=== PATIENT | female | born 1935 | race Caucasian/White ===

== ENCOUNTER → 2016-10-08 | Outpatient (CLI) | payer MEDICARE, BC | END | disposition home or self-care (01) | LOC: LABPAT 11:51 | PROVIDERS: ATTEND Orthopaedic Surgery | DX: Z01.812 Encounter for preprocedural laboratory examination (principal) | CPT/HCPCS: 87070 ==

== ENCOUNTER 2016-10-12 12:01 | Inpatient (IN) | payer MEDICARE, BC ==
[2016-10-05 15:09] VITALS: BMI 38.3
[~2016-10-12 12:01] MED LIST: ACETAMINOPHEN TAB 500 MG TAB PO ONE; FAMOTIDINE 20 MG/2 ML VIAL IV PRN; HYDROmorphone 1 MG/ML 1 ML SYRINGE IVP PRN; LACTATED RINGERS 1,000 ML IV SCH; LIDOCAINE 1% 20 ML VIAL (10MG/ML) FOR IV START INTRADERMA PRN; MELOXICAM 7.5 MG TAB PO ONE; MIDAZOLAM 2 MG/2 ML VIAL IV PRN; ONDANSETRON 4 MG/2 ML VIAL IVP PRN; ROPIVACAINE 246.25 MG, EPINEPHrine 0.5 MG, KETOROLAC 30 MG, cloNIDine HCL/PF 80 MCG, WA... MISCELLANE ONE; TRANEXAMIC ACID 1,000 MG in SODIUM CHLORIDE 0.9% 100 ML IVPB ONE; ceFAZolin 2 GM in SODIUM CHLORIDE 0.9% 100 ML IVPB ONE
[2016-10-12] MEDS ORDERED: LIDOCAINE 1% 20 ML VIAL (10MG/ML) FOR IV START INTRADERMA ONE (14:40)
[2016-10-12] MEDS ORDERED: DEXAMETHASONE SOD PHOSPHATE 10 MG/ML 1 ML VIAL IV ONE (14:46)
[2016-10-12] MEDS ORDERED: NEOSTIGMINE 1 MG/ML 10 ML VIAL ONE (15:15)
[2016-10-12] MEDS ORDERED: PROPOFOL 10 MG/ML 20 ML VIAL IV ONE (15:15)
[2016-10-12] MEDS ORDERED: GLYCOPYRROLATE 0.2 MG/ML 2 ML VIAL ONE (15:15)
[2016-10-12] MEDS ORDERED: ROCURONIUM BROMIDE 10 MG/ML 10 ML VIAL IV ONE (15:15)
[2016-10-12] MEDS ORDERED: SUCCINYLCHOLINE CHLORIDE 100 MG/5 ML SYR IV ONE (15:15)
[2016-10-12] MEDS ORDERED: TRANEXAMIC ACID 1,000 MG/10 ML VIAL ONE (15:15)
[2016-10-12] MEDS ORDERED: SODIUM CHLORIDE 0.9% 100 ML BAG ONE (15:15)
[2016-10-12] MEDS ORDERED: hydrALAZINE HCL 20 MG/ML 1 ML VIAL ONE (15:15)
[2016-10-12] MEDS ORDERED: fentaNYL (PF) 50 MCG/ML 2 ML AMP ONE (15:15)
[2016-10-12] MEDS ORDERED: LIDOCAINE 1% INJ 10MG/ML (20 ML MDV) ONE (15:15)
--- NOTE | 2016-10-12 16:25 | P.OP ---
Date of Procedure: 10/12/16 Preoperative Diagnosis: Severe osteoarthritis left shoulder Postoperative Diagnosis: Severe osteoarthritis left shoulder Procedure(s) Performed: Resurfacing hemiarthroplasty left shoulder Implants: Stuart & Nephew resurfacing shoulder 42 mm head. Stuart & Nephew resurfacing shoulder small stem Anesthesia: ISAMARA Surgeon: Patrick Reyes Web Site Administrator #1: Marianne Durand Estimated Blood Loss (ml): 75 Pathology: other (Bone and cartilage) Condition: stable Disposition: PACU Indications for Procedure: This is a patient that presented to my office with severe pain in the shoulder. X-rays demonstrated severe osteoarthritis of the glenohumeral joint of her shoulder. After failure of conservative treatment, we discussed the surgical and nonsurgical treatment options at length. The patient has had a prior resurfacing hemiarthroplasty of her other shoulder, has done very well. The patient wishes to proceed with a surfacing shoulder hemiarthroplasty. Patient is aware of the complications of the procedure which include but are not limited to infection, hardware failure, persistent pain, dislocation, and nerve injury. Informed consent was obtained. Operative Findings: The operative findings are consistent with severe osteoarthritis of her left shoulder Description of Procedure: The patient was seen in the preoperative area, consent was reviewed, and operative site was marked with a skin marker. Patient was then brought to the operating room and given preoperative antibiotics intravenously. Patient was also given 1 g of Tranexamic acid intravenously. A general anesthetic was administered by the anesthesia department. A Mitchell catheter was placed by the nursing staff. The patient was then placed in a beach chair position with the bony prominences well-padded and the head secured. The shoulder was then prepped and draped in the usual sterile fashion. A universal timeout was then performed, which confirmed the patient's name, surgical site, ALLERGIES, and consent. A standard deltopectoral approach was performed. The skin and subcutaneous tissue was sharply dissected down to the deltoid fascia. The cephalic vein was then identified and retracted medially. The deltopectoral interval was then utilized to expose the subscapularis tendon. A retractor was then placed under the coracobrachialis tendon retracted medially, and the deltoid. The axillary nerve is palpated and protected throughout the procedure. The subscapularis tendon was then released and retracted medially. The humeral head was then exposed easily. The rotator cuff tendon was found to be completely torn and retracted. After the humeral head was exposed, osteophytes were removed with a Ronguer. Next, using the guide, the guidewire was inserted in the center of the humeral head. After the humeral head was sized, the appropriate reamer was then used to ream the humeral head. Next the central hole was then drilled with the appropriate drill. The shoulder was then copiously irrigated with pulsatile lavage. Next a trial humeral component was placed in the shoulder was reduced. Shoulder was taken through a full range of motion and found to be stable. The shoulder was then gently dislocated, and the trial humerus component was removed. The final humeral component was impacted. Shoulder was then relocated. Again the shoulder was taken through a range of motion and found to have no instability. Shoulder was then irrigated with pulsatile lavage. The shoulder was then irrigated with Irrisept solution. The soft tissues were then injected with ropivacaine solution. A second dose of 1 g of Tranexamic acid was given. The subscapularis was then repaired with #1 Vicryl. The deltopectoral interval was then closed with #1 Vicryl as well. The subcutaneous tissues were closed with 2-0 Vicryl then Dermabond was placed on the skin. A sterile dressing was then applied, the patient was transported to the recovery room in an arm sling in stable condition. The broker assistant Marianne Durand required due the complexity of the surgery and the need for a skilled surgical coder.
[2016-10-12] MEDS ORDERED: ONDANSETRON 4 MG/2 ML VIAL IVP PRN (16:36)
[2016-10-12] MEDS ORDERED: hydrOXYzine PAMOATE 25 MG CAP PO PRN ×2 (16:36)
[2016-10-12] MEDS ORDERED: SENNOSIDES-DOCUSATE SODIUM 1 EACH TAB PO PRN (16:36)
[2016-10-12] MEDS ORDERED: HYDROmorphone 1 MG/ML 1 ML SYRINGE IVP PRN ×3 (16:36)
[2016-10-12] MEDS ORDERED: HYDROcodone/APAP 5-325MG 1 EACH TAB PO PRN (16:36)
[2016-10-12 16:43] VITALS: RESP 16
--- NOTE | 2016-10-12 17:03 | XR ---
EXAMINATION TYPE: XR shoulder limited LT DATE OF EXAM: 10/12/2016 4:55 PM COMPARISON: NONE HISTORY: Pain TECHNIQUE: Shoulder examined in 3 FINDINGS: There is placement of a humeral head component. No acute fractures are evident. IMPRESSION: 1. Postsurgical changes humeral head prosthesis.
[2016-10-12 19:32] LABS: Basophils # (A) 0.1 k/uL (0-0.2); Basophils % (A) 0 %; CHCM 33.1; Eosinophils # (A) 0.1 k/uL (0-0.7); Eosinophils % (A) 0 %; HCT 39.9 % (34.0-46.0); HDW 2.48; HGB 13.3 gm/dL (11.4-16.0); Luc # (Auto) 0.06; Luc % (Auto) 0; Lymphocytes # (A) 0.7 k/uL (1.0-4.8); Lymphocytes % (A) 4 %; MCH 31.3 pg (25.0-35.0); MCHC 33.2 g/dL (31.0-37.0); MCV 94.2 fL (80.0-100.0); Mean Platelet Volume 9.4; Monocytes # (A) 0.4 k/uL (0-1.0); Monocytes % (A) 2 %; Neutrophils # (A) 18.6 k/uL (1.3-7.7); Neutrophils % (A) 94 %; RBC 4.24 m/uL (3.80-5.40); RDW 13.8 % (11.5-15.5); WBC 19.9 k/uL (3.8-10.6); WBC (Perox) 20.27
[2016-10-12] MEDS: HYDROcodone/APAP 5-325MG 1 EACH TAB PO PRN (20:30)
[2016-10-12] MEDS ORDERED: ACETAMINOPHEN TAB 325 MG TAB PO PRN (21:01)
[2016-10-12] MEDS ORDERED: ALPRAZolam 0.5 MG TAB PO PRN (21:01)
[2016-10-12] MEDS ORDERED: MECLIZINE 12.5 MG TAB PO PRN (21:01)
[2016-10-12] MEDS ORDERED: GABAPENTIN 300 MG CAP PO SCH (22:58)
[2016-10-12] MEDS ORDERED: METOPROLOL TARTRATE 25 MG TAB PO SCH (22:59)
[2016-10-12] MEDS: SODIUM CHLORIDE 0.9% 1,000 ML IV SCH (23:22)
[2016-10-12] MEDS: DILTIAZEM CD 120 MG CAP.ER.24H PO SCH (23:23)
[2016-10-12] MEDS: ceFAZolin 2 GM in SODIUM CHLORIDE 0.9% 100 ML IVPB SCH (23:28)
[2016-10-12] MEDS: METOPROLOL TARTRATE 25 MG TAB PO SCH (23:42)
[2016-10-13] MEDS: HYDROcodone/APAP 5-325MG 1 EACH TAB PO PRN ×2 (02:03→17:08)
[2016-10-13] MEDS: ceFAZolin 2 GM in SODIUM CHLORIDE 0.9% 100 ML IVPB SCH (08:24)
[2016-10-13] MEDS: DILTIAZEM CD 120 MG CAP.ER.24H PO SCH (08:25)
[2016-10-13] MEDS: METOPROLOL TARTRATE 25 MG TAB PO SCH (08:26)
--- NOTE | 2016-10-13 08:42 | P.DS ---
Providers Date of admission: 10/12/16 13:36 Attending physician: Patrick Reyes Consults: 10/12/16 16:40 Consult Physician Routine Consulting Provider: Dwayne Morales Consult Reason/Comments: medical managment Do you want consulting provider notified?: Yes Primary care physician: Mary Knott - Discharge Diagnosis(es) (1) Primary osteoarthritis, left shoulder Current Visit: Yes Status: Acute (2) Status post shoulder hemiarthroplasty Current Visit: No Status: Acute Hospital Course: This is a pleasant 81-year-old female with known history of osteoarthritis of the left shoulder. The patient failed conservative treatment. After discussion consideration the patient elected to proceed with resurfacing hemiarthroplasty of the shoulder. She was cleared preoperatively by her primary care physician. Patient was admitted to [facility] on 10/12/2016 and underwent the procedure. The procedure was performed without competitions or sequelae. The patient has done well postoperatively. She is seen and evaluated at bedside with Dr. Patrick Reyes. Her pain is well-controlled. She denies numbness or tingling. Dressing is clean dry and intact. Incision appears fine with no erythema or active drainage. Left upper extremity is neurovascular intact. Radial pulse 2+ out of 4+. The patient is orthopedic medically stable for discharge to home today. Pertinent Studies: Laboratory Tests 10/12/16 19:05 WBC 19.9 H RBC 4.24 Hgb 13.3 Hct 39.9 MCV 94.2 MCH 31.3 MCHC 33.2 RDW 13.8 Plt Count 265 Neutrophils % 94 Lymphocytes % 4 Monocytes % 2 Eosinophils % 0 Basophils % 0 Neutrophils # 18.6 H Lymphocytes # 0.7 L Monocytes # 0.4 Eosinophils # 0.1 Basophils # 0.1 Patient Condition at Discharge: Good Plan - Discharge Summary New Discharge Prescriptions: Hydrocodone/Acetaminophen [[place] 5-325] 1 - 2 each PO Q6HR PRN #90 tab PRN Reason: Pain Sennosides-Docusate Sodium [Senokot-S] 2 tab PO DAILY #60 tablet Discharge Medication List ALPRAZolam [Xanax] 1 mg PO BID PRN 10/09/15 [History] Mirabegron [Myrbetriq] 50 mg PO DAILY 10/09/15 [History] Diltiazem Cd [Cardizem Cd] 120 mg PO BID 10/05/16 [History] Gabapentin [Neurontin] 300 mg PO HS 10/05/16 [History] Hydrocodone/Acetaminophen [[place] 5-325] 0.5 tab PO TID PRN 10/05/16 [History] Meclizine [Antivert] 12.5 mg PO TID PRN 10/05/16 [History] Metoprolol Tartrate [Lopressor] 25 mg PO BID 10/05/16 [History] Acetaminophen [Tylenol Arthritis] 650 mg PO Q8H PRN 10/08/16 [History] Furosemide [Lasix] 20 mg PO DAILY 10/08/16 [History] Hydrochlorothiazide [Hydrodiuril] 25 mg PO DAILY 10/08/16 [History] Lisinopril [Prinivil] 40 mg PO QAM 10/08/16 [History] Multivitamins, Thera [Multivitamin] 1 tab PO DAILY 10/08/16 [History] Potassium Chloride [Klor-Con 10] 10 meq PO DAILY 10/08/16 [History] Ranitidine HCl [Zantac] 150 mg PO BID 10/08/16 [History] Red Yeast Rice 600 mg PO BID 10/08/16 [History] D-Methorphan/PE/Acetaminophen [Tylenol Cold Max Day Caplet] 1 tab PO DAILY PRN 10/12/16 [History] Hydrocodone/Acetaminophen [[place] 5-325] 1 - 2 each PO Q6HR PRN #90 tab 10/13/16 [Rx] Sennosides-Docusate Sodium [Senokot-S] 2 tab PO DAILY #60 tablet 10/13/16 [Rx] Follow up Appointment(s)/Referral(s): Patrick Reyes DO [Doctor of Osteopathic Medicine] - 2 Weeks Activity/Diet/Wound Care/Special Instructions: Sling for comfort left upper extremity. keep Incision clean and dry Okay to shower if no drainage after 2 days. Ice to left shoulder Call [facility] with questions or concerns. [phone] Discharge Disposition: HOME SELF-CARE
[2016-10-13] MEDS ORDERED: FAMOTIDINE 20 MG TAB PO SCH (09:00)
[2016-10-13] MEDS ORDERED: HYDROCHLOROTHIAZIDE 25 MG TAB PO SCH (09:00)
[2016-10-13] MEDS ORDERED: MULTIVITAMINS, THERA 1 EACH TAB PO SCH (09:00)
[2016-10-13] MEDS ORDERED: NON-FORMULARY DRUG (Red Yeast Rice [Red Yeast Rice] 600 MG) PO SCH (09:00)
[2016-10-13] MEDS ORDERED: METOPROLOL TARTRATE 25 MG TAB PO SCH ×2 (09:00→22:31)
[2016-10-13] MEDS ORDERED: DILTIAZEM CD 120 MG CAP.ER.24H PO SCH ×2 (09:00→22:29)
[2016-10-13] MEDS ORDERED: FUROSEMIDE 20 MG TAB PO SCH (09:00)
[2016-10-13] MEDS ORDERED: POTASSIUM CHLORIDE ER 10 MEQ TAB.ER.PRT PO SCH (09:00)
[2016-10-13] MEDS ORDERED: LISINOPRIL 20 MG TAB PO SCH (09:00)
[2016-10-13] MEDS ORDERED: OXYBUTYNIN 10 MG TAB.ER.24 PO SCH (09:00)
[2016-10-13 12:51] LABS: Anion Gap 10 mmol/L; Blood Urea Nitrogen 34 mg/dL (7-17); Calcium 8.9 mg/dL (8.4-10.2); Carbon Dioxide 23 mmol/L (22-30); Chloride 106 mmol/L (98-107); Glucose 121 mg/dL (74-99); Non-African American GFR(MDRD) 59 (>60 ml/min/1.73 sqM); Potassium 4.3 mmol/L (3.5-5.1); Sodium 139 mmol/L (137-145)
[2016-10-13] MEDS: SODIUM CHLORIDE 0.9% 1,000 ML IV SCH (13:45)
[2016-10-13 15:28] VITALS: BP 121/55; PULSE 60; TEMP 98
--- NOTE | 2016-10-13 17:46 | CONS ---
DATE OF CONSULTATION: REASON FOR CONSULTATION: Leukocytosis. Patient is a 81-year-old admitted with severe osteoarthritis of the shoulder. Patient underwent left shoulder hemiarthroplasty and the patient denied any fever or chills. The patient denied any dysuria, nausea, vomiting. The patient denied any abdominal pain. The patient denied any dysuria. Patient clinically doing well post surgery. Does have sluggish bowel sounds. REVIEW OF SYSTEMS: CONSTITUTIONAL: No fever, no malaise, no fatigue. HEENT: No recent visual problems or hearing problems. Denied any sore throat. CARDIOVASCULAR: No chest pain, orthopnea, PND, no palpitations, no syncope. PULMONARY: No shortness of breath, no cough, no hemoptysis. GASTROINTESTINAL: No diarrhea, no nausea, no vomiting, no abdominal pain. Normoactive bowel sounds. NEUROLOGICAL: No headaches, no weakness, no numbness. HEMATOLOGICAL: Denies any bleeding or petechiae. GENITOURINARY: Denies any burning micturition, frequency, or urgency. MUSCULOSKELETAL/RHEUMATOLOGICAL: Left shoulder, some soreness in the shoulder area. ENDOCRINE: Denies any polyuria or polydipsia. The rest of the 14 point review of systems is negative. Past medical history significant for DVT and gastroesophageal reflux disease, hypertension, osteoarthritis. Regarding hypertension, patient is on hydrochlorothiazide and Lasix. I do not believe hydrochlorothiazide is beneficial when she is on Lasix, because of that hydrochlorothiazide will be discontinued upon discharge; osteoarthritis, left breast cancer, back surgery, cholecystectomy, joint replacement surgery and tonsillectomy. SOCIAL HISTORY: Denied any smoking, alcohol abuse or any drug abuse. FAMILY HISTORY: Multiple cancers in the family. Home medications include: 1. Ranitidine. 2. Potassium chloride. 3. Multivitamin. 4. ( ). 5. Metoprolol. 6. Meclizine. 7. Lisinopril. 8. Hydrocodone. 9. Acetaminophen. 10. Gabapentin. 11. Lasix. 12. Diltiazem. 13. Cardizem CD. 14. Alprazolam. 15. Acetaminophen. 16. Senna. 17. Hydrocodone acetaminophen. PHYSICAL EXAMINATION: VITAL SIGNS: Temperature 97.3, pulse of 58, respiratory rate of 16, blood pressure is 109/60, saturating at 94% on room air. GENERAL: Alert and oriented x3. Not in apparent distress. HEENT: Pupils are round and equally reacting to light. EOMI. No scleral icterus. No conjunctival pallor. Normocephalic, atraumatic. No pharyngeal erythema. No thyromegaly. CARDIOVASCULAR: S1 and S2 present. No murmurs, rubs, or gallops. PULMONARY: Chest is clear to auscultation, no wheezing or crackles. ABDOMEN: Soft, nontender, nondistended, normoactive bowel sounds. No palpable organomegaly. MUSCULOSKELETAL: defer to orthopedic surgery. EXTREMITIES: No cyanosis, clubbing, or pedal edema. NEUROLOGICAL: Gross neurological examination did not reveal any focal deficits. SKIN: No rashes. LABORATORY DATA: CBC, BMP no significant abnormality was appreciated except for elevated BUN of 34 and WBC count of 19,900. ASSESSMENT AND PLAN: 1. Leukocytosis without any signs or symptoms of ( ) at this point in time. 2. Left shoulder arthroplasty, further management pain management and deep venous thrombosis prophylaxis per orthopedic surgery. 3. Hypertension, all the medications can be continued except for hydrochlorothiazide that may not be beneficial to as the patient is already on Lasix. 4. Obesity. Counseling was provided. 5. Gastroesophageal reflux disease. 6. DVT in the past. Patient is not on any anticoagulation for previous deep venous thrombosis. No further recommendations at this point of time. ( ) discharge medications reconciliation, the patient can be discharged from medical perspective whenever she is okay from orthopedic perspective.
[2016-10-13] MEDS ORDERED: GABAPENTIN 300 MG CAP PO SCH ×2 (21:00→22:30)
[2016-10-14] MEDS ORDERED: FAMOTIDINE 20 MG TAB PO SCH (09:00)
== END 2016-10-13 17:23 | disposition home or self-care (01) | DRG 483 ==
LOC: 2ORMAIN 13:36 → 3SUR 16:24
PROVIDERS: ADMIT Orthopaedic Surgery; ATTEND Orthopaedic Surgery
PROC: 0RRK0JZ Replacement of Left Shoulder Joint with Synthetic Substitute, Open Approach (ICD-10-PCS; principal; 2016-10-12 15:50)
DX: M19.012 Primary osteoarthritis, left shoulder (principal); I10 Essential (primary) hypertension; E66.9 Obesity, unspecified; D72.829 Elevated white blood cell count, unspecified; K21.9 Gastro-esophageal reflux disease without esophagitis; Z86.718 Personal history of other venous thrombosis and embolism; Z79.899 Other long term (current) drug therapy
CPT/HCPCS: 80048; 85025

== ENCOUNTER → 2016-11-25 | Outpatient (CLI) | payer MEDICARE, BC ==
[2016-11-25 10:39] LABS: Basophils # (A) 0.1 k/uL (0-0.2); Basophils % (A) 1 %; CH 31.5; CHCM 32.7; Eosinophils # (A) 0.2 k/uL (0-0.7); Eosinophils % (A) 3 %; HCT 38.8 % (34.0-46.0); HDW 2.78; HGB 12.8 gm/dL (11.4-16.0); Luc % (Auto) 3; Lymphocytes # (A) 1.3 k/uL (1.0-4.8); Lymphocytes % (A) 20 %; MCH 31.9 pg (25.0-35.0); MCHC 32.9 g/dL (31.0-37.0); Mean Platelet Volume 7.7; Monocytes # (A) 0.6 k/uL (0-1.0); Monocytes % (A) 9 %; Neutrophils # (A) 4.2 k/uL (1.3-7.7); Neutrophils % (A) 64 %; RDW 14.5 % (11.5-15.5); WBC 6.6 k/uL (3.8-10.6); WBC (Perox) 6.68
[2016-11-25 10:47] LABS: INR 1.1 (<1.1); Partial Thromboplastin Time 23.7 sec (22.0-30.0); Prothrombin Time 10.8 sec (9.0-12.0)
[2016-11-25 10:48] LABS: Appearance,Urine Clear (Clear); Bilirubin,Urine Negative (Negative); Glucose,Urine (UA) Negative (Negative); Ketones,Urine Negative (Negative); Leukocyte Esterase,Urine Small (Negative); Mucus,Urine Rare /hpf; Nitrite,Urine Negative (Negative); PH, Urine 5.5 (5.0-8.0); Particle Count 2120; Protein,Urine Negative (Negative); RBC,Urine 1 /hpf (0-5); Specific Gravity,Urine 1.011 (1.001-1.035); Squamous Epithelial Cell,Urine <1 /hpf (0-4); UA Billing (MACRO vs. MICRO) MICRO; Urobilinogen,Urine <2.0 mg/dL (<2.0); WBC,Urine 4 /hpf (0-5)
[2016-11-25 10:57] LABS: ALT 28 U/L (9-52); AST 21 U/L (14-36); Alkaline Phosphatase 81 U/L (38-126); Anion Gap 9 mmol/L; Blood Urea Nitrogen 25 mg/dL (7-17); Calcium 9.5 mg/dL (8.4-10.2); Carbon Dioxide 27 mmol/L (22-30); Chloride 106 mmol/L (98-107); Glucose 77 mg/dL (74-99); Non-African American GFR(MDRD) >60 (>60 ml/min/1.73 sqM); Potassium 4.1 mmol/L (3.5-5.1); Sodium 142 mmol/L (137-145); Total Bilirubin 0.7 mg/dL (0.2-1.3); Total Protein 6.6 g/dL (6.3-8.2)
== END | disposition home or self-care (01) ==
LOC: LABPAT 09:40
PROVIDERS: ATTEND Orthopaedic Surgery
DX: Z01.812 Encounter for preprocedural laboratory examination (principal); Z79.01 Long term (current) use of anticoagulants
CPT/HCPCS: 80053; 81001; 85025; 85610; 85730; 86850; 86900; 86901; 87070

== ENCOUNTER 2016-12-07 09:51 | Inpatient (IN) | payer MEDICARE, BC ==
[2016-12-03 15:25] VITALS: BMI 38.5
[~2016-12-07 09:51] MED LIST changes: +DEXAMETHASONE SOD PHOSPHATE 10 MG/ML 1 ML VIAL IV ONE; -FAMOTIDINE 20 MG/2 ML VIAL IV PRN; -LACTATED RINGERS 1,000 ML IV SCH; +ONDANSETRON 4 MG/2 ML VIAL IVP ONE; -ONDANSETRON 4 MG/2 ML VIAL IVP PRN; -ROPIVACAINE 246.25 MG, EPINEPHrine 0.5 MG, KETOROLAC 30 MG, cloNIDine HCL/PF 80 MCG, WA... MISCELLANE ONE; +SCOPOLAMINE 1.5MG/72HR PATCH TRANSDERM ONE
[2016-12-07] MEDS: LACTATED RINGERS 1,000 ML IV SCH (12:02)
[2016-12-07] MEDS ORDERED: METOPROLOL TARTRATE 25 MG TAB PO STA (12:02)
[2016-12-07] MEDS ORDERED: SODIUM CHLORIDE 0.9% IRRIG 1,000 ML BTL IRRIGATION ONE (13:41)
[2016-12-07] MEDS ORDERED: HYDROmorphone (PF) 1 MG/ML ONE (13:41)
[2016-12-07] MEDS ORDERED: HEPARIN SODIUM,PORCINE 10,000 UNIT/ML 1 ML VIAL ONE (13:41)
[2016-12-07] MEDS ORDERED: MIDAZOLAM 2 MG/2 ML VIAL ONE (13:41)
[2016-12-07] MEDS ORDERED: fentaNYL (PF) 50 MCG/ML 2 ML AMP ONE (13:41)
[2016-12-07] MEDS ORDERED: ceFAZolin 3,000 MG in SODIUM CHLORIDE 0.9% IRRIGATIO 3,000 ML IRRIGATION ONE (14:05)
[2016-12-07] MEDS: ROPIVACAINE 246.25 MG, EPINEPHrine 0.5 MG, KETOROLAC 30 MG, cloNIDine HCL/PF 80 MCG, WA... MISCELLANE ONE ×10 (14:23→15:11)
[2016-12-07] MEDS ORDERED: LACTATED RINGERS 1,000 ML IV ONE (15:15)
--- NOTE | 2016-12-07 15:27 | P.OP ---
Date of Procedure: 12/07/16 Preoperative Diagnosis: Severe osteoarthritis right hip Postoperative Diagnosis: Severe osteoarthritis right hip Procedure(s) Performed: Right total hip arthroplasty with a direct anterior approach Implants: Stuart and nephew Polarstem size 2 standard Stuart & Nephew R3, 3 hole acetabular shell, 48 mm Stuart & Nephew reflection 6.5 mm cancellus screw, 20 mm 2 Stuart & Nephew R3, XLPE 20 acetabular liner Stuart & Nephew Oxinium femoral head 32 m, +0 All components were press-fit. The articulation is ceramic on polyethylene. Anesthesia: spinal Surgeon: Patrick Reyes Human Services Worker #1: Marianne Durand Human Services Worker #2: Charmaine Garza Estimated Blood Loss (ml): 150 (66 mL returned with Cell Saver) Pathology: other (Femoral head) Condition: stable Disposition: PACU Indications for Procedure: After failure of conservative treatment we discussed the surgical and nonsurgical treatment options at length. Patient wishes to proceed with a total hip arthroplasty with a direct anterior approach. Complications specific to this procedure were discussed at length, including but not limited to infection, leg length discrepancy, dislocation, and nerve injury. Patient is aware of all these complications and informed consent was obtained Operative Findings: The operative findings are consistent with severe osteoarthritis of the right hip Description of Procedure: Patient was seen and evaluated in the preoperative area, consent was reviewed, and the surgical site was marked with a skin marker. Patient was then brought to the operating room and given prophylactic antibiotics intravenously. 1 g of Tranexamic acid was also given. A spinal anesthetic was administered by the anesthesia department. A Mitchell catheter was then placed by the nursing staff. The patient was then placed on the Clarita table with the bony prominences well- padded. The hip area was then prepped and draped in usual sterile fashion. A universal timeout was then performed, which confirmed the patient's name, surgical site, ALLERGIES, and procedure being performed. Next the incision site was located at 1 cm distal and 1 cm lateral to the anterior superior iliac spine. The skin and subcutaneous tissues were sharply incised. Incision was carefully dissected down to the fascia overlying the tensor fascia carlos muscle. This fascia was then incised in line with the incision. Next, using blunt finger dissection, the tensor fascia carlos muscle was dissected off its investing fascia. The muscle was then carefully retracted laterally with a cobra retractor over the lateral neck of the femur. Next, the circumflex vessels were identified and cauterized using the AquaMantis device. The anterior hip capsule was then exposed. The capsule was then opened and an inverted T fashion. Retention sutures were placed in the inferior arms of the capsule. Cobra retractors were then placed intracapsularly. The proximal femur was then visualized. The femoral neck was then osteotomized appropriate level above the lesser trochanter. Small amount of traction was placed with the Clarita table. A small wedge of bone was then removed from the remaining femoral head. Next, using a corkscrew femoral head was easily removed from the acetabulum. On gross visual inspection, the femoral head had complete loss of articular cartilage in multiple periarticular osteophytes. Attention was then turned to the acetabulum. the acetabulum was exposed and any remaining labrum was excised. Sequential reaming of the acetabulum was performed using fluoroscopic guidance. When the appropriate size was reached, a trial was then placed. The position and fit of the trial was checked with fluoroscopy. The trial was then removed. Then, using fluoroscopic guidance, the final implant was impacted at 20 of anteversion and 40 of abduction, and fully seated in the acetabulum. 2 screws were then placed in the acetabulum. Again fluoroscopy was used to check position of the screws. Next, the liner was then impacted, with a 20 elevated liner located in the anterior superior quadrant. Component locking was confirmed. Attention was then directed to the femur. With the aid of the Clarita table, the femur was externally rotated to approximately 130, extended, and abducted under the opposite leg. A side hook was then placed under the proximal femur, and the side hook elevator was used to elevate the proximal femur. Retractors were then placed. A capsular release was performed, as well as a release of the conjoined tendon, which afforded excellent visualization of the proximal femur. Next, a box osteotome was used to lateralize the proximal femur. A stone hand was then used to locate the femoral canal. Sequential broaching was then performed with appropriate size which afforded excellent fixation in the proximal femur. A trial was then placed with appropriate head and neck, and the hip was gently reduced with the aid of the Clarita table. Fluoroscopy was then used to check position of the components, as well as to ensure equal leg lengths. The hip was then gently dislocated and the trials were then removed. Final implants were then impacted and the hip was again reduced. Final fluoroscopic x-rays confirmed that the components were in anatomic position, as well as equal leg lengths. The hip was also taken through range of motion, and found to be stable. The hip was then copiously irrigated with antibiotic solution with pulsatile lavage. The hip was then irrigated with Irrisept solution. The soft tissues were then injected with a ropivacaine solution, which consisted of 246.25 mg of ropivacaine, 0.5 mg of epinephrine, 30 mg of Toradol, 80 g of clonidine, and 48.45 mL of sterile water, for a total of 100 mL of fluid injected. A second dose of 1 g of Tranexamic acid was also given. the fascia was then closed with 2-0 strata fix suture. The subcutaneous tissue was closed with 3-0 Vicryl. The subcuticular tissue was closed with 3-0 strata fix suture. The skin was then closed with Dermabond tape. The patient was then transferred to the recovery room in stable condition. The fish hatchery assistant APRIL Sheth was required due to the complexity of surgery , and the need for skilled surgical garment assembly supervisor for positioning, draping, exposure , retraction, and closure of the wound.
--- NOTE | 2016-12-07 15:32 | FL ---
EXAMINATION TYPE: FL guidance operating room, XR Hip Limited 2 views RT DATE OF EXAM: 12/07/2016 3:18 PM COMPARISON: NONE HISTORY: 81-year-old female anterior right hip replacement FINDINGS: Frontal images demonstrating placement of right total hip arthroplasty. FLUOROSCOPY Fluoroscopy time of 47 seconds was used during anterior right hip replacement. 2 image/s document/s the procedure. IMPRESSION: Intraoperative fluoroscopy during right hip replacement as above.
[2016-12-07] MEDS ORDERED: HYDROmorphone 1 MG/ML 1 ML SYRINGE IVP PRN ×3 (15:37)
[2016-12-07] MEDS ORDERED: NALOXONE 0.4 MG/ML 1 ML VIAL IV PRN (15:37)
[2016-12-07] MEDS ORDERED: hydrOXYzine PAMOATE 25 MG CAP PO PRN (15:37)
[2016-12-07] MEDS ORDERED: ONDANSETRON 4 MG/2 ML VIAL IVP PRN (15:37)
[2016-12-07] MEDS ORDERED: MAGNESIUM HYDROXIDE 2,400 MG/10 ML CUP PO PRN (15:37)
[2016-12-07] MEDS ORDERED: DIAZEPAM 5 MG TAB PO PRN ×2 (15:37)
--- NOTE | 2016-12-07 17:39 | XR ---
EXAMINATION TYPE: XR Hip Limited RT DATE OF EXAM: 12/07/2016 5:02 PM CLINICAL HISTORY: Right hip pain and osteoarthritis. TECHNIQUE: Single AP portable view of right hip is obtained immediately postoperatively. COMPARISON: None. FINDINGS: Metallic hardware from right hip arthroplasty is seen and appears satisfactory in alignment and position. There is evidence of recent surgery with subcutaneous gas and soft tissue swelling no makenzie laterally. IMPRESSION: Metallic hardware from right hip arthroplasty is satisfactory in position.
[2016-12-07] MEDS ORDERED: MECLIZINE 12.5 MG TAB PO PRN (17:51)
[2016-12-07] MEDS: SODIUM CHLORIDE 0.9% 1,000 ML IV SCH (18:07)
[2016-12-07] MEDS: ASPIRIN 325 MG TAB PO SCH (20:24)
[2016-12-07] MEDS: HYDROcodone/APAP 5-325MG 1 EACH TAB PO PRN (20:25)
[2016-12-07] MEDS: GABAPENTIN 300 MG CAP PO SCH (20:26)
[2016-12-07] MEDS: FAMOTIDINE 20 MG TAB PO SCH (20:26)
[2016-12-07] MEDS: SENNOSIDES-DOCUSATE SODIUM 1 EACH TAB PO SCH (20:26)
[2016-12-07] MEDS: METOPROLOL TARTRATE 25 MG TAB PO SCH (20:26)
[2016-12-07] MEDS: ceFAZolin 2 GM in SODIUM CHLORIDE 0.9% 100 ML IVPB SCH (20:28)
[2016-12-08] MEDS: ceFAZolin 2 GM in SODIUM CHLORIDE 0.9% 100 ML IVPB SCH (05:21)
[2016-12-08] MEDS: LACTATED RINGERS 1,000 ML IV SCH (05:21)
[2016-12-08] MEDS: HYDROcodone/APAP 5-325MG 1 EACH TAB PO PRN ×3 (05:25→21:41)
[2016-12-08 07:54] LABS: Basophils % (A) 0 %; CH 32.3; CHCM 34.3; Eosinophils % (A) 0 %; HCT 34.3 % (34.0-46.0); HDW 2.87; HGB 11.5 gm/dL (11.4-16.0); Luc # (Auto) 0.11; Luc % (Auto) 1; Lymphocytes # (A) 1.1 k/uL (1.0-4.8); Lymphocytes % (A) 9 %; MCH 31.8 pg (25.0-35.0); MCHC 33.6 g/dL (31.0-37.0); MCV 94.7 fL (80.0-100.0); Monocytes % (A) 8 %; Neutrophils # (A) 9.3 k/uL (1.3-7.7); Neutrophils % (A) 81 %; RBC 3.62 m/uL (3.80-5.40); WBC 11.6 k/uL (3.8-10.6); WBC (Perox) 11.32
[2016-12-08] MEDS: SODIUM CHLORIDE 0.9% 1,000 ML IV SCH (08:55)
[2016-12-08] MEDS: METOPROLOL TARTRATE 25 MG TAB PO SCH ×2 (08:57→21:43)
[2016-12-08] MEDS: ASPIRIN 325 MG TAB PO SCH ×2 (08:57→21:43)
[2016-12-08] MEDS: FUROSEMIDE 20 MG TAB PO SCH (08:57)
[2016-12-08] MEDS: LISINOPRIL 20 MG TAB PO SCH (08:57)
[2016-12-08] MEDS: MULTIVITAMINS, THERA 1 EACH TAB PO SCH ×2 (08:57→11:49)
[2016-12-08] MEDS: POTASSIUM CHLORIDE ER 10 MEQ TAB.ER.PRT PO SCH (08:57)
[2016-12-08] MEDS: FAMOTIDINE 20 MG TAB PO SCH (08:57)
[2016-12-08] MEDS: MELOXICAM 7.5 MG TAB PO SCH (08:58)
--- NOTE | 2016-12-08 09:41 | P.PN ---
Subjective Principal diagnosis: Status post right total hip arthroplasty This is a pleasant 81-year-old female who is status post right total hip arthroplasty. Today's postoperative day #1. The patient is seen and evaluated at bedside today with Dr. Patrick Reyes. She is comfortable at this time. She has no new complaints at this time. Objective - Vital Signs Vital signs: Vital Signs Temp 97.1 F L 12/08/16 01:04 Pulse 56 L 12/08/16 01:04 Resp 16 12/08/16 01:04 BP 165/70 12/08/16 01:04 Pulse Ox 94 L 12/08/16 01:04 Intake & Output 12/07/16 12/08/16 12/08/16 18:59 06:59 18:59 Intake Total 1451 2030 Output Total 720 200 Balance 731 1830 Intake: IV 1451 Intake, IV Titration 900 Amount Sodium Chloride 0.9% 1, 700 000 ml @ 60 mls/hr IV . [id number] BELKYS Rx#:[id number] ceFAZolin 2 gm In Sodium 200 Chloride 0.9% 100 ml @ 100 mls/hr IVPB Q8H BELKYS Rx#:[id number] Oral 1130 Output: Urine 570 200 Estimated Blood Loss 150 Other: Voiding Method Indwelling Catheter # Voids 1 - Exam The patient does not appear in acute distress. Alert and orientated 3. Dressing is clean dry and intact. Incision appears fine with no erythema or active drainage. Calf is soft and nontender. Good foot and ankle motion without difficulty. Sensation and circulatory status is intact. - Labs CBC & Chem 7: 12/08/16 07:08 Labs: Abnormal Lab Results - Last 24 Hours (Table) 12/08/16 Range/Units 07:08 WBC 11.6 H (3.8-10.6) k/uL RBC 3.62 L (3.80-5.40) m/uL Neutrophils # 9.3 H (1.3-7.7) k/uL Assessment and Plan (1) Primary localized osteoarthritis of right hip Status: Acute (2) Status post right hip replacement Status: Acute Plan: Continue with routine postoperative care. Anticoagulation and pain control. Anticipate transfer to rehab likely on Tuesday.
--- NOTE | 2016-12-08 15:01 | XR ---
EXAMINATION TYPE: XR chest 2V DATE OF EXAM: 12/08/2016 2:56 PM COMPARISON: NONE HISTORY: Shortness of breath TECHNIQUE: Frontal and lateral views of the chest are obtained. FINDINGS: Scattered senescent parenchymal changes noted. Hyperinflation compatible with COPD. No evidence for infiltrate. No evidence for atelectasis. Heart size is stable. Mediastinal structures are stable and grossly unremarkable. No evidence for hilar prominence. Degenerative changes dorsal spine. IMPRESSION: 1. No evidence for acute pulmonary disease.
--- NOTE | 2016-12-08 20:36 | CONS ---
DATE OF CONSULTATION: REASON FOR CONSULTATION: Leukocytosis and recommendations regarding antihypertensive medications and postoperative complications. Patient is a 81-year-old pleasant female admitted for right hip arthroplasty. Patient is clinically doing well. Denied any dysuria. Denied any cough, runny nose. Patient still has pain in the right hip area. Patient is hypertensive but her home medications were continued, in spite of which her blood pressure remained stable. Home medications include: 1. Senna. 2. Red yeast rice. 3. Ranitidine. 4. Potassium chloride. 5. Multivitamin. 6. Myrbetriq. 7. Metoprolol. 8. Meclizine. 9. Lisinopril. 10. Hydrocodone/acetaminophen. 11. Gabapentin. 12. Lasix. 13. Diltiazem. REVIEW OF SYSTEMS: CONSTITUTIONAL: No fever, no malaise, no fatigue. HEENT: No recent visual problems or hearing problems. Denied any sore throat. CARDIOVASCULAR: No chest pain, orthopnea, PND, no palpitations, no syncope. PULMONARY: No shortness of breath, no cough, no hemoptysis. GASTROINTESTINAL: No diarrhea, no nausea, no vomiting, no abdominal pain. Normoactive bowel sounds. NEUROLOGICAL: No headaches, no weakness, no numbness. HEMATOLOGICAL: Denies any bleeding or petechiae. GENITOURINARY: Denies any burning micturition, frequency, or urgency. MUSCULOSKELETAL/RHEUMATOLOGICAL: Deferred to Orthopedic Surgery. ENDOCRINE: Denies any polyuria or polydipsia. The rest of the 14 point review of systems is negative. Past medical history is significant for: 1. DVT. 2. Gastroesophageal reflux disease in the past. 3. Hypertension. 4. Osteoarthritis. SOCIAL HISTORY: Denied any smoking or alcohol abuse or any drug abuse. FAMILY HISTORY: Multiple cancers in the family. PHYSICAL EXAMINATION: VITAL SIGNS: Temperature 96.2, pulse of 68, respiratory rate of 16. Blood pressure is 120/68. Saturating at 92% on room air. GENERAL: The patient is alert and oriented x3, not in any acute distress. Well developed, well nourished. HEENT: Pupils are round and equally reacting to light. EOMI. No scleral icterus. No conjunctival pallor. Normocephalic, atraumatic. No pharyngeal erythema. No thyromegaly. CARDIOVASCULAR: S1 and S2 present. No murmurs, rubs, or gallops. PULMONARY: Chest is clear to auscultation, no wheezing or crackles. ABDOMEN: Soft, nontender, nondistended, normoactive bowel sounds. No palpable organomegaly. MUSCULOSKELETAL: No joint swelling or deformity. EXTREMITIES: No cyanosis, clubbing, or pedal edema. NEUROLOGICAL: Gross neurological examination did not reveal any focal deficits. SKIN: No rashes. LABORATORY DATA: WBC count is 11,600. ASSESSMENT AND PLAN: 1. Leukocytosis without any signs or symptoms of infection at this point of time. Patient will not need any antibiotics. This is a reactive response. 2. Right hip arthroplasty. DVT prophylaxis as per primary service. Recommend avoiding narcotics as much as possible. Patient is already on NSAID. 3. Obesity. Counseling was provided. 4. Hypertension. Patient's blood pressure appears to be doing well with her home dose of antihypertensives. Recommend continuing the same doses. 5. Gastroesophageal reflux disease. 6. Deep venous thrombosis in the past. Patient is not on anticoagulation. Anticoagulation for DVT prophylaxis as per Orthopedic Surgery. Thank for letting me participate in this patient's care. Will continue to follow the patient on an as-needed basis.
[2016-12-08] MEDS: SENNOSIDES-DOCUSATE SODIUM 1 EACH TAB PO SCH (21:42)
[2016-12-08] MEDS: GABAPENTIN 300 MG CAP PO SCH (21:43)
[2016-12-09] MEDS: HYDROcodone/APAP 5-325MG 1 EACH TAB PO PRN ×4 (05:40→22:52)
[2016-12-09] MEDS: MULTIVITAMINS, THERA 1 EACH TAB PO SCH (08:04)
[2016-12-09] MEDS: ASPIRIN 325 MG TAB PO SCH ×2 (08:04→22:14)
[2016-12-09] MEDS: METOPROLOL TARTRATE 25 MG TAB PO SCH ×2 (08:04→22:14)
[2016-12-09] MEDS: MELOXICAM 7.5 MG TAB PO SCH (08:04)
[2016-12-09] MEDS: FUROSEMIDE 20 MG TAB PO SCH (08:04)
[2016-12-09] MEDS: LISINOPRIL 20 MG TAB PO SCH (08:04)
[2016-12-09] MEDS: FAMOTIDINE 20 MG TAB PO SCH (08:05)
[2016-12-09] MEDS: POTASSIUM CHLORIDE ER 10 MEQ TAB.ER.PRT PO SCH (08:05)
--- NOTE | 2016-12-09 08:56 | P.PN ---
Subjective Principal diagnosis: Status post total right hip arthroplasty. This is a well-appearing 81-year-old female who is status post total hip arthroplasty. Today is postop day #2. Patient denies any pain in the right hip and has been up and walking with physical therapy. Patient has no new complaints. Objective - Vital Signs Vital signs: Vital Signs Temp 97.1 F L 12/09/16 07:00 Pulse 70 12/09/16 07:00 Resp 16 12/09/16 07:00 BP 138/60 12/09/16 07:00 Pulse Ox 98 12/09/16 07:00 Intake & Output 12/08/16 12/09/16 12/09/16 18:59 06:59 18:59 Intake Total 120 1850 Output Total 550 Balance -430 1850 Intake: Intake, IV Titration 120 Amount ceFAZolin 2 gm In Sodium 120 Chloride 0.9% 100 ml @ 100 mls/hr IVPB Q8H BELKYS Rx#:[id number] Oral 1850 Output: Urine 550 Uretheral (Mitchell) 200 Other: Voiding Method Toilet # Voids 1 1 - Exam Vital signs are stable. Patient has full foot and ankle motion and is able to flex and extend the right lower extremity. Hip incision is clean, dry and intact. Neurovascular status is intact. Calf is soft and nontender. - Labs CBC & Chem 7: 12/08/16 07:08 Assessment and Plan (1) Primary localized osteoarthritis of right hip Status: Acute (2) Status post right hip replacement Status: Acute Plan: Continue routine postop care. Continue antocoagulation. Weightbearing as tolerated with a walker Daily dressing changes, keep incision clean and dry Possible discharge to rehab tomorrow.
[2016-12-09] MEDS: SENNOSIDES-DOCUSATE SODIUM 1 EACH TAB PO SCH (22:13)
[2016-12-09] MEDS: GABAPENTIN 300 MG CAP PO SCH (22:14)
[2016-12-10 05:14] VITALS: RESP 16
[2016-12-10 07:50] VITALS: BP 139/72; PULSE 74; TEMP 97.6
[2016-12-10 08:18] LABS: Basophils # (A) 0.1 k/uL (0-0.2); Basophils % (A) 1 %; CH 31.5; CHCM 32.6; Eosinophils # (A) 0.2 k/uL (0-0.7); Eosinophils % (A) 3 %; HCT 34.4 % (34.0-46.0); HDW 2.72; HGB 11.2 gm/dL (11.4-16.0); Luc # (Auto) 0.19; Luc % (Auto) 3; Lymphocytes # (A) 1.5 k/uL (1.0-4.8); Lymphocytes % (A) 21 %; MCH 31.7 pg (25.0-35.0); MCHC 32.5 g/dL (31.0-37.0); MCV 97.5 fL (80.0-100.0); Mean Platelet Volume 8.2; Monocytes # (A) 0.7 k/uL (0-1.0); Monocytes % (A) 9 %; Neutrophils # (A) 4.4 k/uL (1.3-7.7); Neutrophils % (A) 63 %; RBC 3.53 m/uL (3.80-5.40); RDW 14.3 % (11.5-15.5); WBC (Perox) 7.21
[2016-12-10] MEDS: ASPIRIN 325 MG TAB PO SCH (08:19)
[2016-12-10] MEDS: MULTIVITAMINS, THERA 1 EACH TAB PO SCH (08:20)
[2016-12-10] MEDS: MELOXICAM 7.5 MG TAB PO SCH (08:20)
[2016-12-10] MEDS: LISINOPRIL 20 MG TAB PO SCH (08:21)
[2016-12-10] MEDS: POTASSIUM CHLORIDE ER 10 MEQ TAB.ER.PRT PO SCH (08:21)
[2016-12-10] MEDS: FAMOTIDINE 20 MG TAB PO SCH (08:21)
[2016-12-10] MEDS: METOPROLOL TARTRATE 25 MG TAB PO SCH (08:21)
[2016-12-10] MEDS: FUROSEMIDE 20 MG TAB PO SCH (08:21)
[2016-12-10] MEDS: HYDROcodone/APAP 5-325MG 1 EACH TAB PO PRN ×2 (08:28→14:48)
--- NOTE | 2016-12-10 09:48 | P.DS ---
Providers Date of admission: 12/07/16 09:51 Expected date of discharge: 12/10/16 Attending physician: Patrick Reyes Consults: 12/07/16 15:37 Consult Physician Routine Consulting Provider: Dwayne Morales Consult Reason/Comments: medical management Do you want consulting provider notified?: Yes Primary care physician: Stated None - Discharge Diagnosis(es) (1) Primary localized osteoarthritis of right hip Current Visit: Yes Status: Acute (2) Status post right hip replacement Current Visit: Yes Status: Acute Hospital Course: This is a 81-year-old female with known history of degenerative arthritis of the right hip. The patient presents for evaluation. After discussion and consideration patient elects to proceed with total hip arthroplasty. The patient is seen preoperatively by Dr. Reyes and cleared for surgery. Patient is admitted to [facility] on 12/07/2016 for total hip arthroplasty. The procedures performed without complication or sequelae. The patient is doing well postoperatively. Labs and vital signs are stable on day of discharge. On day of discharge patient's hip incision is healing well. There is minimal erythema. There is no drainage noted at this time. There is minimal soft tissue swelling to the hip and thigh. Patient has full foot and ankle motion without difficulty or pain. Neurovascular status to the right lower extremity is intact. Patient is discharged to rehab in good condition.Please see med rec for accurate list of home medications. Plan - Discharge Summary New Discharge Prescriptions: Aspirin 325 mg PO BID #60 tab HYDROcodone/APAP 5-325MG [[place] 5-325] 1 - 2 tab PO Q4-6H PRN #90 tab PRN Reason: Pain Sennosides-Docusate Sodium [Senokot-S] 1 tab PO BID #60 tablet Discharge Medication List ALPRAZolam [Xanax] 1 mg PO BID PRN 10/09/15 [History] Mirabegron [Myrbetriq] 50 mg PO DAILY 10/09/15 [History] Diltiazem Cd [Cardizem Cd] 120 mg PO BID 10/05/16 [History] Gabapentin [Neurontin] 300 mg PO HS 10/05/16 [History] Meclizine [Antivert] 12.5 mg PO TID PRN 10/05/16 [History] Metoprolol Tartrate [Lopressor] 25 mg PO BID 10/05/16 [History] Furosemide [Lasix] 20 mg PO DAILY 10/08/16 [History] Multivitamins, Thera [Multivitamin] 1 tab PO DAILY 10/08/16 [History] Potassium Chloride [Klor-Con 10] 10 meq PO DAILY 10/08/16 [History] Ranitidine HCl [Zantac] 150 mg PO BID 10/08/16 [History] Red Yeast Rice 600 mg PO BID 10/08/16 [History] Hydrocodone/Acetaminophen [[place] 5-325] 1 - 2 tab PO Q6HR PRN 12/07/16 [History] Lisinopril [Zestril] 40 mg PO DAILY 12/07/16 [History] Sennosides-Docusate Sodium [Senokot-S] 2 tab PO DAILY PRN 12/07/16 [History] Aspirin 325 mg PO BID #60 tab 12/10/16 [Rx] HYDROcodone/APAP 5-325MG [[place] 5-325] 1 - 2 tab PO Q4-6H PRN #90 tab 12/10/16 [ Rx] Sennosides-Docusate Sodium [Senokot-S] 1 tab PO BID #60 tablet 12/10/16 [Rx] Follow up Appointment(s)/Referral(s): Patrick Reyes DO [Doctor of Osteopathic Medicine] - 2 Weeks Activity/Diet/Wound Care/Special Instructions: Weightbearing as tolerated with walker May shower after 2 days if no drainage from the incision Follow-up with [facility] in 2 weeks with any questions or concerns Discharge Disposition: TRANSFER TO SNF/ECF
--- NOTE | 2016-12-10 14:37 | PN ---
Patient is admitted for orthopedic surgery. Patient was seen by me today as requested to evaluate before her discharge. Patient's vitals are stable. GENERAL: The patient is alert and oriented x3, not in any acute distress. Well developed, well nourished. HEENT: Pupils are round and equally reacting to light. EOMI. No scleral icterus. No conjunctival pallor. Normocephalic, atraumatic. No pharyngeal erythema. No thyromegaly. CARDIOVASCULAR: S1 and S2 present. No murmurs, rubs, or gallops. PULMONARY: Chest is clear to auscultation, no wheezing or crackles. ABDOMEN: Soft, nontender, nondistended, normoactive bowel sounds. No palpable organomegaly. MUSCULOSKELETAL: Deferred to Orthopedic Surgery. EXTREMITIES: No cyanosis, clubbing, or pedal edema. NEUROLOGICAL: Gross neurological examination did not reveal any focal deficits. SKIN: No rashes. I did review the discharge medication reconciliation and I was requested to give a Xanax prescription as a home medication. Patient is getting 1 mg b.i.d. of Xanax, apparently not for anxiety. I extensively counseled her; I do not want to abruptly stop it. I counseled her that it needs to be tapered down, and I am cutting the Xanax to 0.5 mg b.i.d. to be further tapered down and stopped. Patient states she is using it for left-sided facial numbness which is chronic. No further recommendations from medical perspective. Will sign off at this time.
[2016-12-10] MEDS ORDERED: DOCUSATE 100 MG CAP PO SCH (21:00)
== END 2016-12-10 15:14 | DRG 470 ==
LOC: 2ORMAIN 09:51 → 3SUR 15:37
PROVIDERS: ADMIT Orthopaedic Surgery; ATTEND Orthopaedic Surgery
PROC: 0SR904A Replacement of Right Hip Joint with Ceramic on Polyethylene Synthetic Substitute, Uncemented, Open Approach (ICD-10-PCS; principal; 2016-12-07 12:10)
DX: M16.11 Unilateral primary osteoarthritis, right hip (principal); E66.9 Obesity, unspecified; I10 Essential (primary) hypertension; Z79.899 Other long term (current) drug therapy; D72.829 Elevated white blood cell count, unspecified; K21.9 Gastro-esophageal reflux disease without esophagitis; Z86.718 Personal history of other venous thrombosis and embolism
CPT/HCPCS: 71020; 73501; 85025; 86850; 86891; 86900; 86901; 88305; 88311; 94760

== ENCOUNTER → 2023-03-15 | Outpatient (CLI) | payer MEDICARE, BC ==
[2023-03-15 16:33] LABS: INR 0.9 (<1.2); Partial Thromboplastin Time 23.2 sec (22.0-30.0); Prothrombin Time 9.7 sec (9.0-12.0)
[2023-03-15 20:01] LABS: Appearance,Urine Clear (Clear); Bilirubin,Urine Negative (Negative); Blood,Urine Negative (Negative); Color,Urine Yellow (Yellow); Ketones,Urine Negative (Negative); Nitrite,Urine Negative (Negative); Specific Gravity,Urine 1.016 (1.001-1.030); Urobilinogen,Urine 0.2 E.U./DL
[2023-03-15 20:13] LABS: Bacteria,Urine None Seen (None Seen)
[2023-03-15 20:35] LABS: ALT 11 U/L (8-44); AST 19 U/L (13-35); Albumin 4.6 d/dL (3.8-4.9); Albumin/Globulin Ratio 1.84 Ratio (1.60-3.17); Alkaline Phosphatase 85 U/L (41-126); BUN/Creat Ratio 17.42 Ratio (12.00-20.00); Blood Urea Nitrogen 20.9 mg/dL (9.0-27.0); Calcium 9.8 mg/dL (8.7-10.3); Carbon Dioxide 28.3 mmol/L (21.6-31.8); Chloride 103 mmol/L (96-109); Globulin 2.5 d/dL (1.6-3.3); Glucose 99 mg/dL (70-110); Potassium 3.9 mmol/L (3.5-5.5); Sodium 144 mmol/L (135-145); Total Bilirubin 0.4 mg/dL (0.3-1.2); Total Protein 7.1 d/dL (6.2-8.2)
[2023-03-15 21:39] LABS: HCT 45.4 % (37.2-46.3); HGB 14.7 d/dL (12.0-15.0); MCH 30.8 pg (27.0-32.0); MCHC 32.4 d/dL (32.0-37.0); MCV 95.2 FL (80.0-97.0); Mean Platelet Volume 12.9 FL (9.5-12.2); NRBC Per 100 WBC 0 X 10*3/uL (0.00-0.01); Platelet Count 233 X 10*3/uL (140-440); RBC 4.77 X 10*6/uL (4.10-5.20); RDW 14.2 % (11.5-14.5); WBC 8.83 X 10*3/uL (4.50-10.00)
== END | disposition home or self-care (01) ==
LOC: LABPAT 15:20
PROVIDERS: ATTEND Orthopaedic Surgery
DX: Z01.812 Encounter for preprocedural laboratory examination (principal); M16.12 Unilateral primary osteoarthritis, left hip
CPT/HCPCS: 80053; 81001; 85027; 85610; 85730; 87070

== ENCOUNTER 2023-03-22 07:32 | Inpatient (IN) | payer MEDICARE, BC ==
[2023-03-15 10:12] VITALS: BMI 39.8
[~2023-03-22 07:32] MED LIST changes: -ACETAMINOPHEN TAB 500 MG TAB PO ONE; +ACETAMINOPHEN TAB 500 MG TAB PO PRN; -DEXAMETHASONE SOD PHOSPHATE 10 MG/ML 1 ML VIAL IV ONE; +GABAPENTIN 300 MG CAP PO PRN; -HYDROmorphone 1 MG/ML 1 ML SYRINGE IVP PRN; -LIDOCAINE 1% 20 ML VIAL (10MG/ML) FOR IV START INTRADERMA PRN; -MELOXICAM 7.5 MG TAB PO ONE; +MELOXICAM 7.5 MG TAB PO PRN; -MIDAZOLAM 2 MG/2 ML VIAL IV PRN; -ONDANSETRON 4 MG/2 ML VIAL IVP ONE; -SCOPOLAMINE 1.5MG/72HR PATCH TRANSDERM ONE; +TRANEXAMIC 1,000 MG/100ML-NACL 1,000 MG in SALINE 1 100ML.BAG IVPB PRN; -TRANEXAMIC ACID 1,000 MG in SODIUM CHLORIDE 0.9% 100 ML IVPB ONE; -ceFAZolin 2 GM in SODIUM CHLORIDE 0.9% 100 ML IVPB ONE
[2023-03-22] MEDS ORDERED: ONDANSETRON 4 MG/2 ML VIAL ONE (07:52)
[2023-03-22] MEDS ORDERED: LACTATED RINGERS 1,000 ML IV ONE (08:20)
[2023-03-22] MEDS ORDERED: MIDAZOLAM 2 MG/2 ML VIAL IVP ONE (08:34)
--- NOTE | 2023-03-22 08:50 | P.ANPRN ---
Procedure Note - Anesthesia - Nerve Block Performed Left Francisco Time Out Performed: Yes (:) Date of Procedure: 03/22/23 Procedure Start Time: Procedure Stop Time: : Location of Patient: PreOp Indication: Acute Post-Operative Pain, Requested by Surgeon (Dr Patrick Reyes) Sedation Type: Sedate with meaningful contact maintained Preparation: Sterile Prep Position: Supine Catheter: None Needle Types: Pajunk Needle Gauge: 21 Ultrasound used to visualize needle placement: Yes Ultrasound used to observe medication spread: Yes Injectate: 0.5% Ropivacaine (see comment for volume) (20cc +5cc PF Normal saline) Blood Aspirated: No Pain Paresthesia on Injection Noted: No Resistance on Injection: Normal Image Stored and Saved: Yes Events: Uneventful and Well Tolerated
[2023-03-22] MEDS ORDERED: HYDROmorphone 0.5 MG/0.5 ML SYRINGE IVP PRN ×3 (08:57→09:42)
[2023-03-22] MEDS ORDERED: ONDANSETRON 4 MG/2 ML VIAL IVP PRN (08:57)
[2023-03-22] MEDS ORDERED: NALOXONE 0.4 MG/ML 1 ML VIAL IV PRN (08:57)
[2023-03-22] MEDS ORDERED: MAGNESIUM HYDROXIDE 2,400 MG/30 ML CUP PO PRN (08:57)
[2023-03-22] MEDS ORDERED: traMADol 50 MG TAB PO PRN ×2 (08:59)
[2023-03-22] MEDS ORDERED: ROPIVACAINE 5 MG/ML 30 ML VIAL MISCELLANE ONE ×2 (08:59→10:02)
[2023-03-22] MEDS ORDERED: RIVAROXABAN 10 MG TAB PO SCH (09:00)
[2023-03-22] MEDS ORDERED: DEXAMETHASONE SOD PHOSPHATE 4 MG/ML 1 ML VIAL IVP ONE (09:01)
[2023-03-22] MEDS ORDERED: diphenhydrAMINE 50 MG/ML 1 ML VIAL ONE (09:03)
[2023-03-22] MEDS ORDERED: ROPIVACAINE 5 MG/ML 30 ML VIAL ONE (09:03)
[2023-03-22] MEDS ORDERED: MIDAZOLAM 2 MG/2 ML VIAL ONE (09:03)
[2023-03-22] MEDS ORDERED: TRANEXAMIC 1,000 MG/100ML-NACL PREMIX BAG ONE (09:03)
[2023-03-22] MEDS ORDERED: SODIUM CHLORIDE 0.9% (PF) 10 ML VIAL ONE (09:03)
[2023-03-22] MEDS ORDERED: ceFAZolin 1,000 MG in SODIUM CHLORIDE 0.9% 1,000 ML IRRIGATION ONE (09:05)
[2023-03-22] MEDS ORDERED: LIDOCAINE 1% (10MG/ML) FOR IV START INTRADERMA PRN (09:42)
[2023-03-22] MEDS ORDERED: ONDANSETRON 4 MG/2 ML VIAL IVP ONE (09:42)
[2023-03-22] MEDS ORDERED: MIDAZOLAM 2 MG/2 ML VIAL IV PRN (09:42)
[2023-03-22] MEDS ORDERED: DEXAMETHASONE SOD PHOSPHATE 4 MG/ML 1 ML VIAL IV ONE (09:42)
--- NOTE | 2023-03-22 10:10 | P.OP ---
Date of Procedure: 03/22/23 Preoperative Diagnosis: Severe osteoarthritis left hip Postoperative Diagnosis: Severe osteoarthritis left hip Procedure(s) Performed: Left total hip arthroplasty with a direct anterior approach Implants: [employer] Polarstem standard size 2 with a collar [employer] R3, 3 hole hemispherical acetabular shell, 50 mm [employer] Reflection 6.5 mm cancellus screw, 20 mm, 25 mm [employer] R3, XLPE 20 acetabular liner [employer] Oxinium femoral head 36 m, +0 All components were press-fit. The articulation is Oxinium on polyethylene. Anesthesia: spinal Surgeon: Patrick Reyes Chef French #1: Charmaine Keys Estimated Blood Loss (ml): 200 Pathology: none sent Condition: stable Disposition: PACU Indications for Procedure: After failure of conservative treatment we discussed the surgical and nonsu rgical treatment options at length. Patient wishes to proceed with a total hip arthroplasty with a direct anterior approach. Complications specific to this procedure were discussed at length, including but not limited to infection, leg length discrepancy, dislocation, nerve injury, and fracture. Covid-19 was also discussed at length with the patient, and they are aware of the current policies and procedures. The patient was given the option of delaying surgery, but they elect to proceed knowing these risks. Patient is aware of all these complications and informed consent was obtained Operative Findings: The operative findings are consistent with severe osteoarthritis of the left hip Description of Procedure: The patient was seen and evaluated in the preoperative area and the consent was reviewed. The operative site was marked with a skin marker. The patient verified the procedure and operative site. A LORENA block was placed by anesthesia in the preoperative area. The patient was then brought to the operating room and given preoperative antibiotics intravenously. 1 g of Tranexamic acid was also given intravenously. A spinal anesthetic was administered by the anesthesia department. The patient was then placed on the Manter table with the bony prominences well-padded. The hip area was then prepped with a ChloraPrep solution and draped in the usual sterile fashion. A universal timeout was then performed, which confirmed the patient's name, surgical site, ALLERGIES, and procedure being performed on the consent. Next the incision site was located at 1 cm distal and 4 cm lateral to the anterior superior iliac spine. The skin and subcutaneous tissues were sharply incised. Incision was carefully dissected down to the fascia overlying the tensor fascia calros muscle. This fascia was then incised in line with the muscle fibers. Care was taken to stay laterally in order to avoid injuring the lateral femoral cutaneous nerve. Next, using blunt finger dissection, the tensor fascia carlos muscle was dissected off its investing fascia. The muscle was then carefully retracted laterally with a cobra retractor over the lateral neck of the femur. Next, the circumflex vessels were identified and cauterized using the Aquamantis device. The anterior hip capsule was then exposed. The capsule was then opened and an inverted T fashion. The retractors were then placed intracapsularly. The retractors were maintained intracapsular throughout the procedure. The proximal femur was then visualized. Fluoroscopic x-rays were then taken in order to evaluate the preoperative leg lengths. A small amount of traction was placed on the leg. The femoral neck was then osteotomized at the appropriate level above the lesser trochanter. A small wedge of bone was then removed from the remaining femoral head. Next, using a corkscrew the femoral head was removed from the acetabulum. On gross visual inspection, the femoral head had complete loss of articular cartilage and multiple periarticular osteophytes. The femoral head was then measured. Attention was then turned to the acetabulum. The acetabulum was exposed and any remaining labrum was excised. Sequential reaming of the acetabulum was performed using fluoroscopic guidance until there was a good bed of bleeding cancellus bone. When the appropriate size was reached, a trial was then placed. The position and fit of the trial was checked with fluoroscopy. The trial was then removed. Then, using fluoroscopic guidance, the final implant was impacted at 20 of anteversion and 40 of abduction, and fully seated in the acetabulum. 2 screws were then placed in the acetabulum. Again fluoroscopy was used to check position of the screws. Next, the liner was then impacted, with a 20 elevated liner located in the anterior superior quadrant. Component locking was confirmed. Attention was then directed to the femur. With the aid of the Manter table, the femur was externally rotated to approximately 130, extended, and adducted under the opposite leg. A side hook was then placed under the proximal femur, and the side hook elevator was used to elevate the proximal femur while releasing the capsule. Retractors were then placed. A capsular release was performed, as well as a release of the conjoined tendon, which afforded excellent vi sualization of the proximal femur. Next, a box osteotome was used to lateralize the proximal femur. A decorator hand was then used to locate the femoral canal. Sequential broaching was then performed with appropriate size which afforded excellent fixation in the proximal femur. A trial was then placed with appropriate head and neck, and the hip was gently reduced with the aid of the Manter table. Fluoroscopy was then used to check position of the components, as well as to evaluate the leg lengths and offset. The leg lengths and offset were measured as closely as possible to ensure stability of the hip. The hip was then gently dislocated and the trials were then removed. Final implants were then impacted and the hip was again reduced. Final fluoroscopic x-rays confirmed that the components were in anatomic position. The leg lengths and offset were measured and were found to coincide with the trial measurements. The hip was also taken through range of motion, and found to be stable. The hip was then copiously irrigated with antibiotic solution with pulsatile lavage. The hip was then irrigated with Irrisept solution. The soft tissues were then injected with a ropivacaine solution. A second dose of 1 g of Tranexamic acid was also given intravenously. The fascia was then closed with 2-0 strata fix suture. The subcutaneous tissue was closed with 3-0 Vicryl. The subcuticular tissue was closed with 3-0 strata fix suture. The skin was then closed with Exofin skin glue. After the glue and dried, and Optifoam silver impregnated dressing was applied. The patient was th en transferred to the recovery room in stable condition. The social human services assistants APRIL Hathaway was required due to the complexity of surgery, and the need for skilled surgical scrub tech for positioning, draping, exposure, retraction, and closure of the wound.
--- NOTE | 2023-03-22 10:28 | FL ---
Intraoperative/procedural fluoroscopic services were provided. Total fluoroscopy time is 39 seconds w ith a total of 3 submitted images to PACS. Please see the operative/procedural note for further detai ls. DAP: 2.676 Gycm2
--- NOTE | 2023-03-22 11:47 | XR ---
EXAMINATION TYPE: XR Hip Limited LT DATE OF EXAM: 03/22/2023 11:22 AM INDICATION: Patient age:Female; 88 years old; Reason for study: Status post hip surgery, assess surgical alignment; COMPARISON: 12-22 TECHNIQUE: The left hip was examined in the frontal projections FINDINGS: Post arthroplasty changes, hardware is intact, alignment is appropriate. No evidence of fra cture. Postoperative changes of the soft tissues with subcutaneous gas. No evidence of any acute osse ous pathology or joint dislocation. IMPRESSION: Hip arthroplasty with hardware intact and in appropriate alignment. No acute fracture.
[2023-03-22] MEDS: SODIUM CHLORIDE 0.9% 1,000 ML IV SCH ×2 (14:50→23:59)
[2023-03-22] MEDS: LACTATED RINGERS 1,000 ML IV SCH (17:07)
[2023-03-22] MEDS: HYDROcodone/APAP 5-325MG 1 EACH TAB PO PRN (17:25)
[2023-03-22] MEDS: ALPRAZolam 1 MG TAB PO SCH (22:29)
[2023-03-22] MEDS: SENNOSIDES-DOCUSATE SODIUM 1 EACH TAB PO SCH (22:29)
[2023-03-22] MEDS: hydrALAZINE HCL 50 MG TAB PO SCH (22:29)
[2023-03-22] MEDS: HYDROmorphone 0.5 MG/0.5 ML SYRINGE IVP PRN (22:41)
--- NOTE | 2023-03-23 02:36 | P.CONS ---
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 Patient is currently resting in the bed. Awake alert oriented but somewhat poor historian and also hard of hearing. Denies any complaints of chest pain or shortness of breath. No nausea vomiting abdominal pain or diarrhea. No cough or sputum production. Denies any headache or dizziness or lightheadedness. Postoperatively blood pressure 131/66 pulse 71 respirations 16 pulse ox 94% on room air. Laboratory data is not available at this time. Status post left total hip arthroplasty. Postoperative day 0 Osteoarthritis Hypertension Hyperlipidemia History of left breast cancer status post chemoradiation 1999 Left facial droop and left ear deafness status post brain tumor surgery Prior history of DVT left leg GI and DVT prophylaxis. Plan: Patient will be continued on current pain management, bowel regimen and encourage incentive spirometry. Patient will be started back on losartan and metoprolol. Hydralazine, Catapres and Lasix is on hold. Follow-up CBC and BMP tomorrow GI and DVT prophylaxis. PT OT consult and continue to follow. Further recommendations based on clinical course. Thank you for your consult. Past Medical History Past Medical History: Cancer, Deep Vein Thrombosis (DVT), GERD/Reflux, Hyperlipidemia, Hypertension, Osteoarthritis (OA) Additional Past Medical History / Comment(s): LEFT BREAST CANCER-1999 approx received chemo and radiation. LEFT FACIAL DROOPING AND DEAF IN LEFT EAR-POST BRAIN TUMOR SURGERY-had one seizure with brain tumor-has not been on any seizure meds in approx 5 yrs:BENIGN Brain Tumor,RESTLESS LEGS/PAIN. BLADDER INCONTINENCE,blood clot lt leg post back surgery,freq UTIs-last one in spring 2022 History of Any Multi-Drug Resistant Organisms: None Reported Past Surgical History: Back Surgery, Breast Surgery, Cholecystectomy, Joint Replacement, Tonsillectomy, Tubal Ligation Additional Past Surgical History / Comment(s): KNEE REPLACEMENTS- LEFT ONCE, RIGHT TWICE. LEFT PARTIAL MASTECTOMY. BRAIN SURGERY REMOVAL OF BENIGN TUMOR (AT AGE 40 AND 45). BACK X 3. maria esther shoulder hemiarthroplasy,RT cataract,rt total hip, Anterior TLH Past Anesthesia/Blood Transfusion Reactions: No Reported Reaction Additional Past Anesthesia/Blood Transfusion Reaction / Comm: no hx blood transfusion Past Psychological History: No Psychological Hx Reported Smoking Status: Never smoker Past Alcohol Use History: None Reported Past Drug Use History: None Reported - Past Family History Son(s) Additional Family Medical History / Comment(s): SON POST SURGICAL PROCEDURE, - A "SCREEN PUT IN"fell post screen insertion and clots blocked screen. Mother Family Medical History: Cancer Additional Family Medical History / Comment(s): breast Father Family Medical History: Cancer Sister(s) Additional Family Medical History / Comment(s): aneurysm neck area Medications and Allergies Home Medications Medication Instructions Recorded Confirmed Type Metoprolol Tartrate [Lopressor] 12.5 mg PO QAM 10/05/16 03/22/23 History Furosemide [Lasix] 20 mg PO DAILY 10/08/16 03/22/23 History Potassium Chloride [Klor-Con 10 ER] 20 meq PO DAILY 10/08/16 03/22/23 History Red Yeast Rice 600 mg PO BID 10/08/16 03/15/23 History Sennosides-Docusate Sodium 1 tab PO DAILY 12/07/16 03/22/23 History [Senokot-S] ALPRAZolam [Xanax] 1 mg PO HS 03/15/23 03/22/23 History Aspirin 81 mg PO HS 03/15/23 03/15/23 History Cranberry Fruit Concentrate [Azo 250 mg PO HS 03/15/23 03/15/23 History Cranberry] Esomeprazole Magnesium [NexIUM 20 mg PO HS 03/15/23 03/22/23 History 24Hr] Losartan Potassium [Cozaar] 100 mg PO QAM 03/15/23 03/22/23 History Naproxen Sodium [Aleve] 440 mg PO DAILY PRN 03/15/23 03/15/23 History Pregabalin [Lyrica] 100 mg PO QAM 03/15/23 03/22/23 History cloNIDine 0.3 MG/24HR PATCH 1 each TRANSDERM Q7D 03/15/23 03/22/23 History [Catapres-Tts 0.3MG Patch] hydrALAZINE HCL [Apresoline] 50 mg PO TID 03/15/23 03/22/23 History HYDROcodone/APAP 5-325MG [[place] 1 - 2 tab PO Q6HR PRN #32 tab 03/22/23 Rx 5-325] Rivaroxaban [Xarelto] 10 mg PO DAILY #35 tab 03/22/23 Rx Sennosides [Senokot] 2 tab PO DAILY PRN #60 tablet 03/22/23 Rx Allergies Allergy/AdvReac Type Severity Reaction Status Date / Time No Known Allergies Allergy Verified 03/15/23 08:26 Physical Exam Vitals: Vital Signs Temp Pulse Resp BP Pulse Ox 03/22/23 15:06 98.4 F 71 16 131/66 94 L 03/22/23 14:00 56 L 16 127/60 100 03/22/23 13:00 52 L 16 129/60 100 03/22/23 12:15 48 L 16 118/55 99 03/22/23 12:00 50 L 14 121/60 100 03/22/23 11:30 48 L 14 123/52 100 03/22/23 11:15 48 L 14 137/61 100 03/22/23 11:00 52 L 14 119/57 97 03/22/23 10:45 49 L 14 119/58 97 03/22/23 10:30 98.2 F 52 L 14 113/57 94 L 03/22/23 08:48 97.8 F 61 16 146/68 96 Intake and Output 03/22/23 03/22/23 03/22/23 06:59 14:59 22:59 Intake Total 1051 480 Output Total 200 Balance 851 480 Intake: IV 1051 Oral 480 Output: Estimated Blood Loss 200 Other: # Voids 1 Weight 90.3 kg 90.3 kg
[2023-03-23] MEDS: HYDROcodone/APAP 5-325MG 1 EACH TAB PO PRN ×3 (03:50→20:02)
[2023-03-23] MEDS: PANTOPRAZOLE 40 MG TABLET PO SCH (06:49)
[2023-03-23] MEDS: LOSARTAN 50 MG TAB PO SCH (08:26)
[2023-03-23] MEDS: hydrALAZINE HCL 50 MG TAB PO SCH ×3 (08:26→22:16)
[2023-03-23] MEDS: RIVAROXABAN 10 MG TAB PO SCH (08:26)
[2023-03-23] MEDS: METOPROLOL TARTRATE 12.5 MG TAB PO SCH (08:26)
[2023-03-23] MEDS: HYDROmorphone 0.5 MG/0.5 ML SYRINGE IVP PRN (09:13)
--- NOTE | 2023-03-23 09:25 | P.PN ---
Subjective Progress Note Date: 03/23/23 Principal diagnosis: Primary osteoarthritis left hip. Status post total left hip arthroplasty. This is an 88-year-old female who is postop day #1 status post total left hip arthroplasty. She has no new complaints or concerns today. She is doing well from an orthopedic standpoint. She has no complaint of nausea, vomiting, shortness of breath or dyspnea. Vital signs are stable. Objective - Vital Signs Vital signs: Vital Signs Temp 97.9 F 03/23/23 07:09 Pulse 60 03/23/23 07:09 Resp 15 03/23/23 07:09 BP 120/60 03/23/23 07:09 Pulse Ox 94 L 03/23/23 07:09 FiO2 Intake & Output 03/22/23 03/23/23 03/23/23 18:59 06:59 18:59 Intake Total 1531 530 Output Total 200 Balance 1331 530 Weight 90.3 kg Intake: IV 1051 Intake, IV Titration 290 Amount Lactated Ringers 1,000 ml 240 @ 20 mls/hr IV .Q24H [facility] Rx#:[id number] ceFAZolin 2 gm In Sodium 50 Chloride 0.9% 50 ml @ 100 mls/hr IVPB Q8HR [facility] Rx# :[id number] Oral 480 240 Output: Estimated Blood Loss 200 Other: # Voids 1 2 - Exam This is a pleasant 88-year-old female in no acute distress. She is alert and oriented 3. Exam of the left lower extremity reveals that her dressing is clean, dry and intact. There is mild soft tissue swelling. There is no erythema or ecchymosis. She has full foot and ankle motion without difficulty or pain. Neurovascular status to the lower extremity is intact. Assessment and Plan (1) Status post total replacement of left hip Current Visit: Yes Status: Acute Code(s): Z96.642 - PRESENCE OF LEFT ARTIFICIAL HIP JOINT SNOMED Code(s): 619178281616 (2) Osteoarthritis of left hip Current Visit: Yes Status: Acute Code(s): M16.12 - UNILATERAL PRIMARY OSTEOARTHRITIS, LEFT HIP SNOMED Code(s): 971138146453167 Plan: The clinical findings are discussed with the patient. She is requesting discharge to inpatient rehab in either [place] or [place]. We will begin physical therapy today and anticipate discharge either tomorrow or Tuesday.
[2023-03-23] MEDS: LACTATED RINGERS 1,000 ML IV SCH (10:18)
[2023-03-23 11:22] LABS: BUN/Creat Ratio 21.45 Ratio (12.00-20.00); Blood Urea Nitrogen 23.6 mg/dL (9.0-27.0); Calcium 8.5 mg/dL (8.7-10.3); Carbon Dioxide 26.1 mmol/L (21.6-31.8); Chloride 106 mmol/L (96-109); Glucose 96 mg/dL (70-110); Potassium 3.8 mmol/L (3.5-5.5); Sodium 141 mmol/L (135-145)
[2023-03-23] MEDS: SODIUM CHLORIDE 0.9% 1,000 ML IV SCH (11:32)
[2023-03-23 12:16] LABS: HGB 11.3 d/dL (12.0-15.0); MCHC 32.3 d/dL (32.0-37.0); MCV 96.2 FL (80.0-97.0); Mean Platelet Volume 12.5 FL (9.5-12.2); NRBC Per 100 WBC 0 X 10*3/uL (0.00-0.01); Platelet Count 166 X 10*3/uL (140-440); RBC 3.64 X 10*6/uL (4.10-5.20); RDW 14.4 % (11.5-14.5); WBC 8.88 X 10*3/uL (4.50-10.00)
[2023-03-23 12:17] LABS: Basophils # (A) 0.04 X 10*3/uL (0.00-0.10); Basophils % (A) 0.5 %; Eosinophils # (A) 0.06 X 10*3/uL (0.04-0.35); Eosinophils % (A) 0.7 %; Lymphocytes # (A) 1.46 X 10*3/uL (0.90-5.00); Lymphocytes % (A) 16.4 %; Monocytes # (A) 1.12 X 10*3/uL (0.20-1.00); Monocytes % (A) 12.6 %; Neutrophils # (A) 6.16 X 10*3/uL (1.80-7.70); Neutrophils % (A) 69.3 %
[2023-03-23] MEDS: SENNOSIDES-DOCUSATE SODIUM 1 EACH TAB PO SCH (20:02)
[2023-03-23] MEDS: ALPRAZolam 1 MG TAB PO SCH (22:17)
[2023-03-24] MEDS: HYDROcodone/APAP 5-325MG 1 EACH TAB PO PRN ×4 (01:23→20:40)
[2023-03-24] MEDS: SODIUM CHLORIDE 0.9% 1,000 ML IV SCH (05:27)
--- NOTE | 2023-03-24 06:18 | P.PN ---
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 Patient is currently resting in the bed. Awake alert oriented but somewhat poor historian and also hard of hearing. Denies any complaints of chest pain or shortness of breath. No nausea vomiting abdominal pain or diarrhea. No cough or sputum production. Denies any headache or dizziness or lightheadedness. Postoperatively blood pressure 131/66 pulse 71 respirations 16 pulse ox 94% on room air. Laboratory data is not available at this time. 03/23/2023 Patient is seen in follow-up today status post left total hip arthroplasty and sitting up in the chair. Patient reports pain in the hip although currently controlled on current regimen. Patient to be evaluated by physical therapy this morning. Patient is afebrile with no reported chest pain or shortness of breath. Patient does have continued IV fluids which we'll discontinue his patient is eating and drinking no difficulties. A.m. labs this morning are pending and will follow-up. Patient reports would like to go to rehab up in the [facility]. Case management following working on insurance authorization arrangements. Patient with incentive spirometer at the bedside encourage the patient continue using at least 10 times every hour while awake. Home medications reviewed and resumed as appropriate. Review of systems: Constitutional: No reports of fatigue, fever, or chills Cardiovascular: No reports of chest pain or palpitations Respiratory: No reports of shortness of breath or cough GI: No reports of nausea, vomiting, or diarrhea : No reports of dysuria or retention Neurovascular: reports of weakness and some left hip pain All medications have been reviewed Physical exam: Gen: This is a 88-year-old female who is awake, alert and oriented 3, hard of hearing, well-developed, well-nourished, obese HEENT: Head is atraumatic, normocephalic. Pupils equal, round. Sclerae is anicteric. NECK: Supple. No JVD. No lymphadenopathy. No thyromegaly. LUNGS: Clear to auscultation. No wheezes or rhonchi. No intercostal retractions. HEART: Regular rate and rhythm. No murmur. ABDOMEN: Soft. Obese. Bowel sounds are present. No masses. No tenderness. EXTREMITIES: No pedal edema. No calf tenderness. Left hip surgical site is dry and intact and soft and palpable around with some minimal swelling NEUROLOGICAL: Patient is awake, alert and oriented x3. Cranial nerves 2 through 12 are grossly intact. Diffusely weak Assessment: Status post left total hip arthroplasty. Postoperative day 1 Osteoarthritis Hypertension Hyperlipidemia History of left breast cancer status post chemoradiation 2000 Left facial droop and left ear deafness status post brain tumor surgery Prior history of DVT left leg GI and DVT prophylaxis. Plan: Patient will be continued on current pain management, bowel regimen and DVT prophylaxis per orthopedics encourage incentive spirometry use at least 10 times every hour while awake. A.m. labs pending at this time and will follow-up Home medications reviewed and resumed as appropriate and will continue to hold diuretics for now Patient worked with physical therapy this patient continues to report some pain and weakness and working on possible ECF with case management following Continue GI and DVT prophylaxis. We will continue to follow with orthopedics during hospitalization. Thank you kindly for this consultation. Patient is medically stable for transfer to ECF once accepted and insurance is approved The impression and plan of care has been dictated by Sarah Francois, Nurse Practitioner as directed. Dr. Suzie MD I have performed a history and examination and MDM of this patient, discussed the same with the dictator, and agree with the dictator's assessment and plan as written ,documented as a scribe. Based on total visit time, I have performed more than 50% of the visit. Objective - Vital Signs Vital signs: Vital Signs Temp 97.9 F 03/23/23 07:09 Pulse 60 03/23/23 07:09 Resp 15 03/23/23 07:09 BP 120/60 03/23/23 07:09 Pulse Ox 94 L 03/23/23 07:09 FiO2 Intake & Output 03/22/23 03/23/23 03/23/23 18:59 06:59 18:59 Intake Total 1531 530 Output Total 200 Balance 1331 530 Weight 90.3 kg Intake: IV 1051 Intake, IV Titration 290 Amount Lactated Ringers 1,000 ml 240 @ 20 mls/hr IV .Q24H [facility] Rx#:[id number] ceFAZolin 2 gm In Sodium 50 Chloride 0.9% 50 ml @ 100 mls/hr IVPB Q8HR [facility] Rx# :[id number] Oral 480 240 Output: Estimated Blood Loss 200 Other: # Voids 1 2 - Labs CBC & Chem 7: 03/23/23 06:22 03/23/23 06:22
[2023-03-24] MEDS: PANTOPRAZOLE 40 MG TABLET PO SCH (06:44)
[2023-03-24] MEDS: LOSARTAN 50 MG TAB PO SCH (08:56)
[2023-03-24] MEDS: hydrALAZINE HCL 50 MG TAB PO SCH ×3 (08:56→21:13)
[2023-03-24] MEDS: METOPROLOL TARTRATE 12.5 MG TAB PO SCH (08:56)
[2023-03-24] MEDS: RIVAROXABAN 10 MG TAB PO SCH (08:56)
--- NOTE | 2023-03-24 15:14 | P.PN ---
Subjective Progress Note Date: 03/24/23 This is an 88-year-old female who is status post left total hip arthroplasty. This is postoperative day #2 and patient is seen and evaluated at bedside today. Patient states that she is doing well and has been able to work with physical therapy. Objective - Vital Signs Vital signs: Vital Signs Temp 98.4 F 03/24/23 14:00 Pulse 65 03/24/23 14:00 Resp 16 03/24/23 14:00 BP 161/67 03/24/23 14:00 Pulse Ox 95 03/24/23 14:00 FiO2 Intake & Output 03/23/23 03/24/23 03/24/23 18:59 06:59 18:59 Intake Total 240 Balance 240 Intake: Oral 240 Other: Voiding Method Toilet Diaper # Voids 3 2 - Exam On exam patient is sitting comfortably in a chair in no acute distress. Patient is alert and oriented x3. Dressing is clean, dry and intact. No drainage. No erythema. Calf is soft and nontender to palpation. Sensation intact. Patient has full range of motion of the foot and ankle. Neurovascular status and circulatory status are intact. - Labs CBC & Chem 7: 03/23/23 06:22 03/23/23 06:22 Assessment and Plan Plan: 1. Weightbearing as tolerated with a walker. Continue physical therapy. 2. Continue routine postoperative care and pain control. 3. Dressing to stay intact for 7 days. 4. Continue Xarelto for DVT prophylaxis. 5. Patient is awaiting ECF placement.
[2023-03-24] MEDS ORDERED: bisacodyL 10 MG SUPP RECTAL STA (16:34)
[2023-03-24] MEDS: SENNOSIDES-DOCUSATE SODIUM 1 EACH TAB PO SCH (20:40)
[2023-03-24] MEDS: ALPRAZolam 1 MG TAB PO SCH (21:13)
[2023-03-24] MEDS: FUROSEMIDE 20 MG TAB PO SCH (21:13)
[2023-03-25] MEDS: HYDROcodone/APAP 5-325MG 1 EACH TAB PO PRN ×3 (03:24→15:54)
[2023-03-25] MEDS: PANTOPRAZOLE 40 MG TABLET PO SCH (06:42)
[2023-03-25 07:15] VITALS: TEMP 98.3
[2023-03-25] MEDS: hydrALAZINE HCL 50 MG TAB PO SCH ×2 (07:56→15:23)
[2023-03-25] MEDS: RIVAROXABAN 10 MG TAB PO SCH (07:56)
[2023-03-25] MEDS: METOPROLOL TARTRATE 12.5 MG TAB PO SCH (07:56)
[2023-03-25] MEDS: LOSARTAN 50 MG TAB PO SCH (07:56)
[2023-03-25] MEDS: FUROSEMIDE 20 MG TAB PO SCH (07:56)
[2023-03-25] MEDS ORDERED: PREGABALIN 100 MG CAP PO SCH (09:00)
--- NOTE | 2023-03-25 10:30 | P.PN ---
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 Patient is currently resting in the bed. Awake alert oriented but somewhat poor historian and also hard of hearing. Denies any complaints of chest pain or shortness of breath. No nausea vomiting abdominal pain or diarrhea. No cough or sputum production. Denies any headache or dizziness or lightheadedness. Postoperatively blood pressure 131/66 pulse 71 respirations 16 pulse ox 94% on room air. Laboratory data is not available at this time. 03/23/2023 Patient is seen in follow-up today status post left total hip arthroplasty and sitting up in the chair. Patient reports pain in the hip although currently controlled on current regimen. Patient to be evaluated by physical therapy this morning. Patient is afebrile with no reported chest pain or shortness of breath. Patient does have continued IV fluids which we'll discontinue his patient is eating and drinking no difficulties. A.m. labs this morning are pending and will follow-up. Patient reports would like to go to rehab up in the [facility]. Case management following working on insurance authorization arrangements. Patient with incentive spirometer at the bedside encourage the patient continue using at least 10 times every hour while awake. Home medications reviewed and resumed as appropriate. 03/24/2023 Patient is seen in follow-up today status post left hip surgical intervention and reports is doing well. Patient reports is passing gas although has not had a bowel movement and will make stool softener scheduled for now. Patient reports she was taking diuretics previously and would like to be resumed. Awaiting follow-up labs as creatinine was 1.1 previously. Patient is afebrile denies chest pain or shortness of breath. Patient reports a tolerating diet with no reported nausea or vomiting noted. Patient is medically stable for ECF. Review of systems: Constitutional: No reports of fatigue, fever, or chills Cardiovascular: No reports of chest pain or palpitations Respiratory: No reports of shortness of breath or cough GI: No reports of nausea, vomiting, or diarrhea, reports passing gas but no bowel movement as of yet : No reports of dysuria or retention Neurovascular: reports of weakness and some left hip pain All medications have been reviewed Physical exam: Gen: This is a 88-year-old female who is awake, alert and oriented 3, hard of hearing, well-developed, well-nourished, obese HEENT: Head is atraumatic, normocephalic. Pupils equal, round. Sclerae is anicteric. NECK: Supple. No JVD. No lymphadenopathy. No thyromegaly. LUNGS: Clear to auscultation. No wheezes or rhonchi. No intercostal retractions. HEART: Regular rate and rhythm. No murmur. ABDOMEN: Soft. Obese. Bowel sounds are present. No masses. No tenderness. EXTREMITIES: No pedal edema. No calf tenderness. Left hip surgical site is dry and intact and soft and palpable around with some minimal swelling NEUROLOGICAL: Patient is awake, alert and oriented x3. Cranial nerves 2 through 12 are grossly intact. Diffusely weak Assessment: Status post left total hip arthroplasty. Osteoarthritis Hypertension Hyperlipidemia History of left breast cancer status post chemoradiation 2000 Left facial droop and left ear deafness status post brain tumor surgery Prior history of DVT left leg GI and DVT prophylaxis. Full code Plan: Patient will be continued on current pain management, bowel regimen and DVT prophylaxis per orthopedics. Will adjust stool softeners to be scheduled as opposed to as needed and will add when necessary bowel regimen encourage incentive spirometry use at least 10 times every hour while awake. BMP ordered as creatinine was 1.1 and patient is requesting to resume Lasix. Patient will likely be okay to resume Lasix on discharge to ECF Patient worked with physical therapy this patient continues to report some pain and weakness and working on ECF with case management following Continue GI and DVT prophylaxis. We will continue to follow with orthopedics during hospitalization. Thank you kindly for this consultation. Patient is medically stable for transfer to ECF once accepted and insurance is approved The impression and plan of care has been dictated by Nurse Waldo Yoo as directed. Dr. Suzie MD I have performed a history and examination and MDM of this patient, discussed the same with the dictator, and agree with the dictator's assessment and plan as written ,documented as a scribe. Based on total visit time, I have performed more than 50% of the visit. Objective - Vital Signs Vital signs: Vital Signs Temp 98.3 F 03/24/23 07:10 Pulse 69 03/24/23 07:10 Resp 16 03/24/23 07:10 BP 147/75 03/24/23 07:10 Pulse Ox 90 L 03/24/23 07:10 FiO2 Intake & Output 03/23/23 03/24/23 03/24/23 18:59 06:59 18:59 Intake Total 240 Balance 240 Intake: Oral 240 Other: # Voids 3 2 - Labs CBC & Chem 7: 03/23/23 06:22 03/23/23 06:22 Labs: Abnormal Lab Results - Last 24 Hours (Table) 03/23/23 03/23/23 Range/Units 06:22 06:22 RBC 3.64 L (4.10-5.20) X 10*6/uL Hgb 11.3 L (12.0-15.0) d/dL Hct 35.0 L (37.2-46.3) % MPV 12.5 H (9.5-12.2) FL Monocytes # 1.12 H (0.20-1.00) X 10*3/uL Est GFR (CKD-EPI) 49 L (>=60) BUN/Creatinine Ratio 21.45 H (12.00-20.00) Ratio Calcium 8.5 L (8.7-10.3) mg/dL
--- NOTE | 2023-03-25 10:37 | P.PN ---
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 Patient is currently resting in the bed. Awake alert oriented but somewhat poor historian and also hard of hearing. Denies any complaints of chest pain or shortness of breath. No nausea vomiting abdominal pain or diarrhea. No cough or sputum production. Denies any headache or dizziness or lightheadedness. Postoperatively blood pressure 131/66 pulse 71 respirations 16 pulse ox 94% on room air. Laboratory data is not available at this time. 03/23/2023 Patient is seen in follow-up today status post left total hip arthroplasty and sitting up in the chair. Patient reports pain in the hip although currently controlled on current regimen. Patient to be evaluated by physical therapy this morning. Patient is afebrile with no reported chest pain or shortness of breath. Patient does have continued IV fluids which we'll discontinue his patient is eating and drinking no difficulties. A.m. labs this morning are pending and will follow-up. Patient reports would like to go to rehab up in the [facility]. Case management following working on insurance authorization arrangements. Patient with incentive spirometer at the bedside encourage the patient continue using at least 10 times every hour while awake. Home medications reviewed and resumed as appropriate. 03/24/2023 Patient is seen in follow-up today status post left hip surgical intervention and reports is doing well. Patient reports is passing gas although has not had a bowel movement and will make stool softener scheduled for now. Patient reports she was taking diuretics previously and would like to be resumed. Awaiting follow-up labs as creatinine was 1.1 previously. Patient is afebrile denies chest pain or shortness of breath. Patient reports a tolerating diet with no reported nausea or vomiting noted. Patient is medically stable for ECF. 03/25/2023 Patient is seen this morning scheduled to go to ECF today. Patient is going to [facility] in [place] or [place] as second choice and case management is following. Patient will require 3 night hospitalization due to Medicare guide lines prior to going to ECF. Patient is afebrile with no reported chest pain or shortness of breath. Patient okay to resume diuretics on discharge and vacation reconciliation has been completed. Patient is medically stable for discharge to ECF today. Review of systems: Constitutional: No reports of fatigue, fever, or chills Cardiovascular: No reports of chest pain or palpitations Respiratory: No reports of shortness of breath or cough GI: No reports of nausea, vomiting, or diarrhea, reports passing gas and voiding with no difficulties : No reports of dysuria or retention Neurovascular: reports of weakness and some left hip pain All medications have been reviewed Physical exam: Gen: This is a 88-year-old female who is awake, alert and oriented 3, hard of hearing, well-developed, well-nourished, obese HEENT: Head is atraumatic, normocephalic. Pupils equal, round. Sclerae is anict kirill. NECK: Supple. No JVD. No lymphadenopathy. No thyromegaly. LUNGS: Clear to auscultation. No wheezes or rhonchi. No intercostal retractions. HEART: Regular rate and rhythm. No murmur. ABDOMEN: Soft. Obese. Bowel sounds are present. No masses. No tenderness. EXTREMITIES: No pedal edema. No calf tenderness. Left hip surgical site is dry and intact and soft and palpable around with some minimal swelling NEUROLOGICAL: Patient is awake, alert and oriented x3. Cranial nerves 2 through 12 are grossly intact. Diffusely weak Assessment: Status post left total hip arthroplasty. Osteoarthritis Hypertension Hyperlipidemia History of left breast cancer status post chemoradiation 2000 Left facial droop and left ear deafness status post brain tumor surgery Prior history of DVT left leg GI and DVT prophylaxis. Full code Plan: Patient will be continued on current pain management, bowel regimen and DVT prophylaxis per orthopedics. Continue stool softeners and bowel regimen as needed encourage incentive spirometry use at least 10 times every hour while awake. Instructed the patient to take to ECF and continue using BMP ordered for this a.m. and pending. Will follow up on creatinine. Patient will likely be okay to resume Lasix on discharge to ECF Patient worked with physical therapy this patient continues to report some pain and weakness and working on ECF with case management following Continue GI and DVT prophylaxis. We will continue to follow with orthopedics during hospitalization. Thank you kindly for this consultation. Patient is medically stable for transfer to ECF today. The impression and plan of care has been dictated by Sarah Francois, Nurse Practitioner as directed. Dr. Suzie MD I have performed a history and examination and MDM of this patient, discussed the same with the dictator, and agree with the dictator's assessment and plan as written ,documented as a scribe. Based on total visit time, I have performed more than 50% of the visit. Objective - Vital Signs Vital signs: Vital Signs Temp 98.3 F 03/25/23 07:15 Pulse 71 03/25/23 07:15 Resp 18 03/25/23 07:15 BP 152/76 03/25/23 07:15 Pulse Ox 91 L 03/25/23 07:15 FiO2 Intake & Output 03/24/23 03/25/23 03/25/23 18:59 06:59 18:59 Intake Total 580 Balance 580 Intake: Oral 580 Other: Voiding Method Toilet Toilet Diaper Diaper # Voids 3 1 # Bowel Movements 1 - Labs CBC & Chem 7: 03/23/23 06:22 03/23/23 06:22
[2023-03-25 11:08] LABS: Basophils # (A) 0.04 X 10*3/uL (0.00-0.10); Basophils % (A) 0.5 %; Eosinophils # (A) 0.16 X 10*3/uL (0.04-0.35); HGB 11.8 d/dL (12.0-15.0); Lymphocytes # (A) 0.78 X 10*3/uL (0.90-5.00); Lymphocytes % (A) 9.9 %; MCH 30.9 pg (27.0-32.0); MCHC 32.8 d/dL (32.0-37.0); MCV 94.2 FL (80.0-97.0); Mean Platelet Volume 12.3 FL (9.5-12.2); Monocytes # (A) 0.84 X 10*3/uL (0.20-1.00); Monocytes % (A) 10.7 %; NRBC Per 100 WBC 0 X 10*3/uL (0.00-0.01); Neutrophils # (A) 6.01 X 10*3/uL (1.80-7.70); Neutrophils % (A) 76.5 %; Platelet Count 168 X 10*3/uL (140-440); RBC 3.82 X 10*6/uL (4.10-5.20); RDW 14.1 % (11.5-14.5); WBC 7.86 X 10*3/uL (4.50-10.00)
--- NOTE | 2023-03-25 12:34 | P.DS ---
Providers Date of admission: 03/22/23 14:50 Expected date of discharge: 03/25/23 Attending physician: Patrick Reyes Consults: 03/22/23 08:57 Consult Physician Routine Consulting Provider: Dwayne Morales Consult Reason/Comments: medical management Do you want consulting provider notified?: Yes Primary care physician: Marc Verde - Discharge Diagnosis(es) (1) Osteoarthritis of left hip Current Visit: Yes Status: Acute (2) Status post total replacement of left hip Current Visit: Yes Status: Acute Hospital Course: This is a 88-year-old female with known history of degenerative arthritis of the left hip. The patient presented for evaluation as an outpatient. After discussion and consideration patient elects to proceed with total hip arthroplasty. The patient is seen preoperatively by Dr. Reyes and medically cleared for surgery by their primary care physician. Patient is admitted to [facility] on 03/22/2023 for total hip arthroplasty. The procedure is performed without complication or sequelae. The patient is doing well postoperatively. Labs and vital signs are stable on day of discharge. On day of discharge patient's hip incision is healing well. There is minimal erythema. There is no drainage noted at this time. There is minimal soft tissue swelling to the hip and thigh. Patient has full foot and ankle motion without difficulty or pain. Calf is soft and nontender to palpation. Neurovascular status to the left lower extremity is intact. Patient is discharged to rehab in good condition. Please see med rec for accurate list of home medications. Plan - Discharge Summary Discharge Rx Participant: No New Discharge Prescriptions: New Sennosides [Senokot] 2 tab PO DAILY PRN #60 tablet PRN Reason: Constipation Rivaroxaban [Xarelto] 10 mg PO DAILY #35 tab HYDROcodone/APAP 5-325MG [[place] 5-325] 1 - 2 tab PO Q6HR PRN #32 tab PRN Reason: Pain No Action Metoprolol Tartrate [Lopressor] 12.5 mg PO QAM Furosemide [Lasix] 20 mg PO DAILY Potassium Chloride [Klor-Con 10 ER] 20 meq PO DAILY Red Yeast Rice 600 mg PO BID Sennosides-Docusate Sodium [Senokot-S] 1 tab PO DAILY cloNIDine 0.3 MG/24HR PATCH [Catapres-Tts 0.3MG Patch] 1 each TRANSDERM Q7D ALPRAZolam [Xanax] 1 mg PO HS hydrALAZINE HCL [Apresoline] 50 mg PO TID Losartan Potassium [Cozaar] 100 mg PO QAM Esomeprazole Magnesium [NexIUM 24Hr] 20 mg PO HS Naproxen Sodium [Aleve] 440 mg PO DAILY PRN PRN Reason: Pain Cranberry Fruit Concentrate [Azo Cranberry] 250 mg PO HS Aspirin 81 mg PO HS Pregabalin [Lyrica] 100 mg PO QAM Discharge Medication List Metoprolol Tartrate [Lopressor] 12.5 mg PO QAM 10/05/16 [History] Furosemide [Lasix] 20 mg PO DAILY 10/08/16 [History] Potassium Chloride [Klor-Con 10 ER] 20 meq PO DAILY 10/08/16 [History] Red Yeast Rice 600 mg PO BID 10/08/16 [History] Sennosides-Docusate Sodium [Senokot-S] 1 tab PO DAILY 12/07/16 [History] ALPRAZolam [Xanax] 1 mg PO HS 03/15/23 [History] Aspirin 81 mg PO HS 03/15/23 [History] Cranberry Fruit Concentrate [Azo Cranberry] 250 mg PO HS 03/15/23 [History] Esomeprazole Magnesium [NexIUM 24Hr] 20 mg PO HS 03/15/23 [History] Losartan Potassium [Cozaar] 100 mg PO QAM 03/15/23 [History] Naproxen Sodium [Aleve] 440 mg PO DAILY PRN 03/15/23 [History] Pregabalin [Lyrica] 100 mg PO QAM 03/15/23 [History] cloNIDine 0.3 MG/24HR PATCH [Catapres-Tts 0.3MG Patch] 1 each TRANSDERM Q7D 03/15/23 [History] hydrALAZINE HCL [Apresoline] 50 mg PO TID 03/15/23 [History] HYDROcodone/APAP 5-325MG [[place] 5-325] 1 - 2 tab PO Q6HR PRN #32 tab 03/22/23 [Rx] Rivaroxaban [Xarelto] 10 mg PO DAILY #35 tab 03/22/23 [Rx] Sennosides [Senokot] 2 tab PO DAILY PRN #60 tablet 03/22/23 [Rx] Follow up Appointment(s)/Referral(s): Patrick Reyes DO [Doctor of Osteopathic Medicine] - 04/04/23 1:30 pm (With Charmaine) Activity/Diet/Wound Care/Special Instructions: Weightbearing as tolerated with walker. Leave dressing intact. Dressing may be removed by home care nurse or by patient in 7 days. Then change dressing twice daily until follow up. May shower with initial dressing intact and after removal. If dressing become saturated, please remove. Please take Xarelto daily for 30 days to prevent blood clots. Recommend use of compression stockings daily until follow up to help prevent swelling and blood clots. May remove at night before sleeping. Please follow-up with [facility] in 2 weeks and call with any questions or concerns, . Discharge Disposition: TRANSFER TO SNF/ECF
[2023-03-25 13:15] LABS: BUN/Creat Ratio 18.44 Ratio (12.00-20.00); Blood Urea Nitrogen 16.6 mg/dL (9.0-27.0); Calcium 8.6 mg/dL (8.7-10.3); Carbon Dioxide 26.6 mmol/L (21.6-31.8); Chloride 102 mmol/L (96-109); Glucose 101 mg/dL (70-110); Potassium 3.6 mmol/L (3.5-5.5); Sodium 140 mmol/L (135-145)
[2023-03-25 13:54] VITALS: BP 138/69; PULSE 68; RESP 17
== END 2023-03-25 16:08 | DRG 470 ==
LOC: OR 07:32 → 4SSUR 10:30 → OR 14:50 → 4SSUR 14:50
PROVIDERS: ADMIT Orthopaedic Surgery; ATTEND Orthopaedic Surgery
PROC: 0SRB02A Replacement of Left Hip Joint with Metal on Polyethylene Synthetic Substitute, Uncemented, Open Approach (ICD-10-PCS; principal; 2023-03-22 09:05)
DX: M16.12 Unilateral primary osteoarthritis, left hip (principal); E78.5 Hyperlipidemia, unspecified; H91.92 Unspecified hearing loss, left ear; I10 Essential (primary) hypertension; Z96.659 Presence of unspecified artificial knee joint; Z79.01 Long term (current) use of anticoagulants; Z79.82 Long term (current) use of aspirin; Z79.899 Other long term (current) drug therapy; Z85.3 Personal history of malignant neoplasm of breast; Z86.718 Personal history of other venous thrombosis and embolism; Z92.21 Personal history of antineoplastic chemotherapy; Z92.3 Personal history of irradiation
CPT/HCPCS: 64447; 73501; 80048; 85025; 86850; 86900; 86901

== ENCOUNTER → 2024-11-10 | Outpatient (CLI) | payer MEDICARE, BC ==
--- NOTE | 2024-11-10 17:06 | MR ---
EXAMINATION TYPE: MR abdomen wo/w con DATE OF EXAM: 11/10/2024 12:05 PM INDICATION: Patient age:Female; 89 years old; Reason for study: K86.2 CYST OF PANCREAS; PHH. COMPARISON: None TECHNIQUE: Multiplanar multi-sequence imaging was performed without and with IV contrast. The patie nt was given 8 ccs of Gadobutrol intravenously and dynamic imaging was performed. Post IV contrast peña btraction images were also submitted for review. FINDINGS: LOWER CHEST: Cardiomegaly. ABDOMEN Liver: Unremarkable. Gallbladder and Bile ducts: The gallbladder is surgical absent. Intra and extrahepatic biliary ductal dilatation with the common bile duct measuring up to 1.2 cm at the pancreatic head. The common hepat ic duct measures up to 2.1 cm. There is normal tapering of the pancreatic head at the ampulla. Small filling defect identified within the common hepatic duct measuring up to 5 mm (series 801, image 33). Pancreas: No pancreatic duct dilatation. Mild atrophy. Several T2 hyperintense cystic lesion is demon strated throughout the pancreas. Examples include a pancreatic head 1.6 cm lesion (series 401, image 19), pancreatic neck 1.1 cm lesion (series 401, image 15) and a pancreatic tail 1.3 cm lesion (series 401, image 18). No abnormal enhancement or mural nodularity identified. Some demonstrate direct comm unication with the main pancreatic duct. Spleen: Unremarkable. Adrenal glands: Unremarkable. Kidneys: No hydronephrosis. Subcentimeter bilateral T2 hyperintense cysts. Stomach and Bowel: Small hiatal hernia. No evidence for obstruction. Distal colonic diverticulosis wi thout surrounding inflammatory changes. Peritoneum: No evidence of pneumoperitoneum, free fluid, or adenopathy. Vasculature: Unremarkable. No aortic aneurysm. Abdominal wall/soft tissues: Surgical changes of the midline anterior abdominal wall with susceptibil ity artifact. Postsurgical changes of the left breast. Musculoskeletal: The osseous structures appear intact. Levoscoliotic curvature of the lumbar spine. M ultilevel degenerative disc disease. Other: Right ovarian cysts with the largest measuring up to 3.0 cm with a thin septation. Additional subcentimeter left ovarian cyst. IMPRESSION: 1. Multiple T2 hyperintense cystic lesions throughout the pancreas with largest measuring up to 1.6 cm. 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 No high risk stigmata or worrisome features. Recommend fo llow-up MRI in one year to assess for stability. 2. Intra and extrahepatic ductal dilatation with normal-appearing tapering at the pancreatic head. S essence nonobstructive filling defect identified within the common hepatic duct measuring 5 mm and favo red to represent choledocholithiasis. Biliary ductal dilatation is likely related to postcholecystect matt physiology. Correlate with biliary labs. 3. Bilateral ovarian cysts/follicles with largest on the right measuring 3.0 cm with a thin septatio n. Recommend further evaluation with pelvic ultrasound. 4. Small hiatal hernia. 5. Colonic diverticulosis without acute diverticulitis. [facility], , 11/10/2024 5:03 PM
== END | disposition home or self-care (01) ==
LOC: RADMRIMAIN 10:50
PROVIDERS: ATTEND Pediatrics
DX: K86.2 Cyst of pancreas (principal); N83.201 Unspecified ovarian cyst, right side; N83.202 Unspecified ovarian cyst, left side; K44.9 Diaphragmatic hernia without obstruction or gangrene; K57.30 Diverticulosis of large intestine without perforation or abscess without bleeding
CPT/HCPCS: 74183; A9585